=== PATIENT | female | born 1985 | race Caucasian/White ===

== ENCOUNTER 2018-02-06 22:07 | Inpatient (IN) ==
[2018-02-07] MEDS ORDERED: Acetaminophen 325 MG TABLET PO PRN (00:36)
[2018-02-07] MEDS ORDERED: Ondansetron 4 MG/2 ML VIAL IVP PRN (00:36)
[2018-02-07] MEDS ORDERED: Naloxone 0.4 MG/ML INJ IVP PRN (00:36)
[2018-02-07] MEDS: diazePAM 10 MG TABLET PO PRN ×2 (01:42→09:51)
[2018-02-07] MEDS ORDERED: Gadolinium Contrast Agent (WT Based) IV PRN (05:01)
--- NOTE | 2018-02-07 05:10 | Orthopedic Consult Note ---
Date of Encounter: 02/07/18 Time of Encounter: 05:04 Assessment and Plan (1) Necrotic hand wound Current Visit: Yes Status: Acute I did have a long discussion with the patient regarding the diagnosis. She does have bilateral hand subacute ulcerative lesions related to toxic injury from IV drug use. There likely is an underlying component of colonization/ infection. There is concern for possible osteomyelitis. I will order bilateral hand MRIs with contrast to further evaluate this. My recommendation is incision, drainage, irrigation, and debridement of devitalized tissue combined with antibiotics and wound care. Depending on the extent of involvement the patient may require skin grafting or flap coverage. She may also require long-term IV antibiotics. The risks discussed included but were not limited to stiffness, bleeding, infection, blood clots, damage to neurovascular structures, tendons, ligaments, and bone. Also discussed was the risk of continued symptoms and possible need for further procedures. I did discuss the anesthesia risks including stroke, heart attack, and . I did discuss the reasonable, foreseeable postoperative course with the patient. She did wish to proceed. Qualifiers: Qualified Code(s): S61.409A - Unspecified open wound of unspecified hand, initial encounter; I96 - Gangrene, not elsewhere classified History of Present Illness HPI: Ms. Chau is a 32 year old female who is an IV drug user actively. She was transferred from the [place] emergency department to [place] related to bilateral upper extremity cellulitis with significant ulceration to the dorsal hand and wrists. Due to possibly needing plastic surgery involvement for flap coverage an attempt was made to transfer the patient to [facility] however these were not successful. The patient indicates that these have been present for the last month and a half and the related to injecting heroin mixed with kerosene. She has not had any formal treatment for these ulcerations despite being to the emergency department to prior times. She complains of pain isolated to the bilateral dorsal hand wrist and forearm areas without any associated numbness or tingling. Symptoms are worse with movement and use and better with rest. No other modifying factors. She denies any other lesions throughout the lower extremities. Past Med Surg Social Fam HX - Past Medical History Medical history: hepatitis Additional medical history: HEP C Psychiatric history: no psych history - Past Surgical History Surgical History: no surgical history - Social History Smoking Status: Current every day smoker Smokeless Tobacco Status: No Alcohol use: occasionally Drug use: opiates, marijuana, methamphetamine, IV Drug Use, prescription drug abuse Medications and Allergies 3 Allergy/AdvReac Type Severity Reaction Status Date / Time No Known Allergies Allergy Verified 02/06/18 22:39 All Systems Reviewed: Constitutional and musculoskeletal systems were reviewed and are negative unless otherwise stated in history of present illness. Physical Exam - Constitutional Vitals: Temp Pulse Resp BP Pulse Ox 98.7 F 91 16 121/81 100 02/07/18 03:54 02/07/18 03:54 02/07/18 03:54 02/07/18 03:54 02/07/18 03:54 Constitutional -Vitals reviewed -The patient is well developed and well nourished. -Mood is pleasant. -The patient is well groomed. Psychiatric -The patient is fully alert and oriented x 3. Respiratory: -Respiratory effort normal Abdomen: -Soft abdomen -Non tender -Non distended: Left upper extremity: -No deformities. -No signs of trauma. -Extensive full-thickness ulceration of the dorsal hand, wrist, and distal forearm area with a mixture of eschar and underlying granulation -Minimal cellulitic change -I am able to milk a small amount of grossly purulent material from the proximal aspect of the lesion. -Expected tenderness throughout the area of ulceration. -No significant pain with passive motion of the shoulder, elbow, wrist, and fingers within the limits of the bed. -Able to make an "OK" sign, cross the index and long fingers, and extend the thumb. -Sensation grossly intact to light touch throughout the median, radial, and ulnar distributions. -Radial pulse is present; Fingers have good capillary refill. Right upper extremity: -No deformities. -No signs of trauma. -Extensive full-thickness ulceration of the dorsal hand, wrist, and distal forearm area with a mixture of eschar and underlying granulation -Minimal cellulitic change -Expected tenderness throughout the area of ulceration. -More proximally in the forearm region there is an area of induration near the common extensor origin area with tenderness and mild redness. -No significant pain with passive motion of the shoulder, elbow, wrist, and fingers within the limits of the bed. -Able to make an "OK" sign, cross the index and long fingers, and extend the thumb. -Sensation grossly intact to light touch throughout the median, radial, and ulnar distributions. -Radial pulse is present; Fingers have good capillary refill. Left lower extremity: -No deformities. -Sequelae from chronic injections and drug use. -The overlying skin is intact. No obvious signs of acute trauma. -No tenderness to palpation throughout. -No pain with passive motion of the hip, knee, ankle, and toes within the limits of the bed. -No pain with axial loading of the thigh. -Able to dorsiflex and plantarflex the ankle and toes. -Sensation is grossly intact to light touch throughout the sural, saphenous, superficial peroneal, and deep peroneal distributions. -Toes have good capillary refill. Right lower extremity: -No deformities. --Sequelae from chronic injections and drug use. -The overlying skin is intact. No obvious signs of acute trauma. -No tenderness to palpation throughout. -No pain with passive motion of the hip, knee, ankle, and toes within the limits of the bed. -No pain with axial loading of the thigh. -Able to dorsiflex and plantarflex the ankle and toes. -Sensation is grossly intact to light touch throughout the sural, saphenous, superficial peroneal, and deep peroneal distributions. -Toes have good capillary refill. Diagnostic Imaging: I did personally review and interpret bilateral hand x-rays which do not show any fractures. There are bony changes in the proximal ring and small finger metacarpals and carpus possibly related to osteomyelitis. Results - Labs Labs: All other labs normal. Consult Discharge Plan - Plan Referrals: NONE,PCP [Primary Care Provider] -
--- NOTE | 2018-02-07 06:22 | Internal Med History&Physical ---
Date of Encounter: 02/07/18 Time of Encounter: 00:30 Internal Medicine - H&P: HPI Chief complaint: Bilateral hand wound Admitted From: Home Plans for Post Hospital Care: Home History of present illness: Ms. Chau is a 32 year old female present to [place] emergency room for bilateral hand wound. Past medical history is significant for hep C, history of IV drug use. Patient has a history of IV drug use for 17 years. Since 2 months ago, she started to have bilateral hand wound, which is getting worse gradually. Patient denies a fever. Patient has bilateral hands pain. In the emergency room, x-ray shows possibly osteomyelitis. Patient was treated with vancomycin. Patient was admitted for further management. Past Med Surg Social Fam HX - Past Medical History Medical history: hepatitis Additional medical history: HEP C Psychiatric history: no psych history - Past Surgical History Surgical History: no surgical history - Social History Smoking Status: Current every day smoker Smokeless Tobacco Status: No Alcohol use: occasionally Drug use: opiates, marijuana, methamphetamine, IV Drug Use, prescription drug abuse - Family History Mother History Unknown: Yes Internal Medicine - H&P: Meds 3 Allergy/AdvReac Type Severity Reaction Status Date / Time No Known Allergies Allergy Verified 02/06/18 22:39 All Systems PM: A 10-system review of systems was performed and is negative for pertinent findings except as documented above in the HPI. - Constitutional Vitals: Temp Pulse Resp BP Pulse Ox 98.7 F 84 16 126/60 98 02/07/18 06:17 02/07/18 06:17 02/07/18 06:17 02/07/18 06:17 02/07/18 06:17 General appearance: Present: A&O X 3, no acute distress, answers questions appropriately - Head Head exam: Present: atraumatic, normocephalic - Eye Eye exam: Present: PERRL, conjuntiva pink, sclera anicteric Pupils: Present: PERRL - Neck Neck exam general surgery: Present: supple, trachea midline. Absent: lymphadenopathy - Respiratory Respiratory exam: Present: CTAB. Absent: accessory muscle use, rales, rhonchi, wheezes - Cardiovascular Cardiovascular exam: Present: RRR, +S1, +S2. Absent: diastolic murmur, gallop, rubs, systolic murmur - GI/Abdominal GI/Abdominal exam: Present: normal bowel sounds, soft, no peritoneal signs. Absent: distended, tenderness - Extremities Exam Extremities exam: Present: warm, radial pulses palpable and symmetrical. Absent : calf tenderness, cyanotic, pedal edema Additional comments: Bilateral hand wound on dorsal side hand and wrist. - Neurological Exam Neurological exam: Present: CN II-XII intact, oriented X3, no focal deficits. Absent: pronater drift, facial droop, speech deficit - Skin Skin exam: Present: dry, intact - Assessment and plan (1) IVDU (intravenous drug user) Current Visit: Yes Status: Acute Assessment and plan: Patient is currently taking heroin and amphetamines. Place patient on Valium by mouth when necessary for withdrawal. Consult social organization professor. Patient has hep C and ask to check HIV, order placed. (2) Tobacco abuse Current Visit: Yes Status: Acute Assessment and plan: Smoking cessation education. Nicotine patch (3) DVT prophylaxis Current Visit: Yes Status: Acute Assessment and plan: Patient is young and ambulating well. No anticoagulation placed (4) Necrotic hand wound Current Visit: Yes Status: Acute Assessment and plan: Bilateral hand wound. X-ray shows cellulitis and osteomyelitis. Place patient on Vanco and Rocephin. Check ESR and CRP. Orthopedic and ID consult. Qualifiers: Encounter type: initial encounter Laterality: unspecified laterality Qualified Code(s): S61.409A - Unspecified open wound of unspecified hand, initial encounter; I96 - Gangrene, not elsewhere classified (5) Osteomyelitis Current Visit: No Status: Acute Assessment and plan: Management as above Qualifiers: Osteomyelitis type: other acute Osteomyelitis location: hand Laterality: unspecified laterality Qualified Code(s): M86.149 - Other acute osteomyelitis , unspecified hand - Time Spent With Patient Total time spent is greater than 50% in coordination of care (as documented) at patient's floor/unit and/or counseling patient:
[2018-02-07 06:26] LABS: Basophils # 0.1 K/mcL (0.0-0.2); Basophils % 0.5 %; Eosinophils # 0.2 K/mcL (0.0-0.6); Eosinophils % 1.9 %; Hematocrit 51.7 % (35.3-44.9); Hemoglobin 17.4 g/dL (11.5-15.4); Immature Granulocytes % 0.5 % (0-4); Lymphocytes # 2.8 K/mcL (0.6-4.6); Lymphocytes % 26.1 %; Mean Corpuscular HGB Conc 33.7 g/dL (31.6-35.5); Mean Corpuscular Hemoglobin 29.2 pg (28.0-33.3); Mean Corpuscular Volume 86.9 fL (83.0-100.0); Mean Platelet Volume 9.6 fL (9.4-12.4); Monocytes # 0.6 K/mcL (0.0-1.3); Monocytes % 5.3 %; Platelet Count 402 K/mcL (140-400); Red Blood Count 5.95 M/mcL (3.82-4.97); Red Cell Distribution Width 13.5 % (11.5-14.5); Segmented Neutrophils % 65.7 %
[2018-02-07 06:53] LABS: Alanine Aminotransferase 7 Units/L (7-52); Albumin 4.7 g/dL (3.5-5.7); Albumin/Globulin Ratio 1.2 (1.1-2.2); Alkaline Phosphatase 69 Units/L (34-104); Aspartate Amino Transferase 11 Units/L (13-39); BUN/Creatinine Ratio 13 (6-26); Bilirubin,Total 0.5 mg/dL (0.3-1.0); Blood Urea Nitrogen 12 mg/dL (6-20); C-Reactive Protein 9 mg/L (Less than 10); Calcium 10.2 mg/dL (8.6-10.3); Carbon Dioxide 23 mEq/L (23-29); Chloride 111 mEq/L (98-107); Globulin 3.8 g/dL (2.4-3.5); Glucose 107 mg/dL (70-105); Magnesium 2.6 mg/dL (1.6-2.6); Osmolality,Calculated 294 (280-300); Potassium 3.4 mEq/L (3.5-5.1); Sodium 142 mEq/L (136-145); Total Protein 8.5 g/dL (6.4-8.9); eGFR For African Americans > 60 (> 60); eGFR For Non-African Americans > 60 (> 60)
[2018-02-07] MEDS ORDERED: cefTRIAXone 1,000 MG in Water for inj. (sterile) 20 ML 10 ML IVP SCH (09:00)
[2018-02-07] MEDS ORDERED: Potassium Chloride Elixir 20 MEQ/15 ML UDC PO ONE (10:18)
[2018-02-07] MEDS ORDERED: Ziprasidone injection 20 MG/ML VIAL IM ONE (11:26)
--- NOTE | 2018-02-07 11:30 | Infectious Disease Consult ---
Date of Encounter: 02/07/18 Time of Encounter: 11:27 Assessment and Plan (1) Necrotic hand wound Status: Acute Assessment and plan: Extensive bilateral hand wounds with eschar Secondary to chronic IV drug abuse XR was inconclusive for osteomyelitis and patient unable to tolerate MRI MRI scheduled for after 7 PM today Recommend if unable to tolerate MRI again, perform CT Ortho consulted, planning on I&D with debridement after imaging completed Qualifiers: Encounter type: initial encounter Laterality: unspecified laterality Qualified Code(s): S61.409A - Unspecified open wound of unspecified hand, initial encounter; I96 - Gangrene, not elsewhere classified (2) Osteomyelitis Status: Suspected Assessment and plan: This is suspected as imaging is pending Secondary to necrotic hand wounds from IVDU Vancomycin and Rocephin ordered but not given due to difficult IV access Will discontinue antibiotics for now until wound biopsy can be obtained Blood culture x 1 collected at ED, negative so far Will obtain two sets of blood cultures today ESR initially 30, will obtain CRP Patient does not have stigmata of endocarditis Considering Modified Puga's criteria, she currently has zero major and 1 minor criteria (IVDU) Qualifiers: Osteomyelitis type: other acute Osteomyelitis location: hand Laterality: unspecified laterality Qualified Code(s): M86.149 - Other acute osteomyelitis , unspecified hand (3) Hepatitis C Status: Chronic Assessment and plan: Patient claims to have known about this diagnosis for 20 years but has never been treated CMP revealed very minor elevation of AST but otherwise unremarkable Will obtain PT/INR to calculate MELD score She is interested in seeking treatment for this and will need to follow up with GI as outpatient Qualifiers: Viral hepatitis chronicity: chronic Hepatic coma status: without hepatic coma Qualified Code(s): B18.2 - Chronic viral hepatitis C (4) IVDU (intravenous drug user) Status: Acute Infectious Disease HPI - Data of Consult Patient: new to practice Consult date: 02/07/18 Requesting Physician: Nita Alvarado MD Primary Care Provider: PCP NONE - Consult Narrative Reason for consult: bilateral osteomyelitis History of present illness: Ms. Chau is a 32 year old female with past medical history of hepatitis C on any treatment, IV drug abuse who presents who was admitted February 07 for with bilateral hand wounds. We are consulted today for bilateral osteomyelitis. In brief, patient is has mental history as above presented to [place] ED last night with bilateral hand wounds that have been worsening over the past 2 months. Initial vital signs at the ED was temperature 98.6, heart rate 96, respiratory of 16 and her white count was 10.6. ESR will was mildly elevated at 30. She admits to last using heroin/kerosene mixure about 3 days ago and admits injecting both her hands, wrists, antecubital region. She states that she has seen a doctor in the ER for this and was given antibiotics, but she admits to not filling the prescription. She also admits to previously seen what appears to be bone in the wounds on her arms, but they have since scabbed over. She claims to put dressing on her wounds and changes in by her self at home. Orthopedic surgery was consulted and recommended obtaining MRI but she was unable to tolerated procedure due to agitation. During today's exam, patient is visibly frustrated after unable to perform MRI. She states that both her hands are and pain in her legs hurt her as well, but this is usual during her withdrawals. She also complains of nausea but has not had any vomiting. She states that she has been constipated. She denies any chest pain, shortness of breath, fevers. CC: Nita Alvarado MD Past Med Surg Social Fam HX - Past Medical History Medical history: hepatitis Additional medical history: HEP C Psychiatric history: no psych history - Past Surgical History Surgical History: no surgical history - Social History Smoking Status: Current every day smoker Smokeless Tobacco Status: No Alcohol use: occasionally Drug use: opiates, marijuana, methamphetamine, IV Drug Use, prescription drug abuse - Family History Mother History Unknown: Yes Infectious Disease-CN:Meds No Known Home Drugs 02/07/18 [History] 3 Allergy/AdvReac Type Severity Reaction Status Date / Time No Known Allergies Allergy Verified 02/06/18 22:39 Review of systems: 10 point review of systems done, negative other for what mentioned in history of present illness. - Constitutional Constitutional: Absent: fever(s), night sweats, weakness - Cardiovascular Cardiovascular: Present: dyspnea. Absent: chest pain, edema, irregular heart rhythm, orthopnea, rapid heart rate - Respiratory Respiratory: Present: dyspnea, chest congestion, excessive phlegm production. Absent: change in phlegm color, pain with cough - Gastrointestinal Gastrointestinal: Present: constipation, nausea. Absent: abdominal pain, melena , vomiting - Genitourinary Genitourinary: Absent: dysuria, urinary frequency, urinary incontinence - Musculoskeletal Musculoskeletal: Present: numbness, tingling. Absent: arthralgias - Integumentary Integumentary: Present: non-healing lesions, skin ulcer - Psychiatric Psychiatric: Present: irritability Exam - Constitutional Vitals: Temp Pulse Resp BP Pulse Ox 98.7 F 84 16 126/60 98 02/07/18 06:17 02/07/18 06:17 02/07/18 06:17 02/07/18 06:17 02/07/18 06:17 General appearance: cooperative (answers questions appropriately, but agitated) , no acute distress, no febrile - Head Head exam: Present: atraumatic, normocephalic - Eye Eye exam: Present: EOMI, PERRL, sclera anicteric. Absent: conjunctival injection - ENT ENT exam: Present: mucous membranes moist Additional comments: No oral lesions - Neck Neck exam: Present: full ROM. Absent: meningismus - Respiratory Respiratory exam: Present: CTAB. Absent: accessory muscle use, chest wall tenderness, respiratory distress, rhonchi, wheezes - Cardiovascular Cardiovascular exam: Present: RRR. Absent: irregular rhythm, systolic murmur, tachycardia - GI/Abdominal GI/Abdominal exam: Present: normal bowel sounds, soft. Absent: tenderness - Extremities Exam Extremities exam: Present: tenderness. Absent: pedal edema - Neurological Exam Neurological exam: Present: alert, oriented X3, no focal deficits - Psychiatric Psychiatric exam: Present: agitated, normal affect, normal mood Additional comments: Was very agitated earlier but now she is calm and appropriate - Skin Additional comments: Extensive ulcers with overlying eschar noted bilaterally in dorsal aspect of hand, wrist and forearm No stigmata of endocarditis noted, no osler nodes, Janeway lesions Infectious Disease CN: Results - Labs CBC & Chem 7: 02/07/18 06:03 02/07/18 06:03 Serology: Serology 02/07/18 Range/Units 06:03 HIV Ag/Ab Combo Qual Nonreactive (Nonreactive) Consult Discharge Plan - Plan Referrals: NONE,PCP [Primary Care Provider] - - Attending Attestation I examined this patient and my medical decision-making was reviewed with the Resident Physician. I agree with the documented findings, disposition and treatment plan as described except to the extent set forth below. This is an addendum to original report dictated by resident physician. Please refer to residents note for full details. Patient is a 32-year-old woman who is had hepatitis C for almost 1516 years and also is an IV drug user including heroin with kerosene and amphetamine. Patient was been having these lesions on her bilateral forearms and hands for about 6 weeks. She states that the getting progressively worse and they are severely painful and burning. She even states that at times she actually visualized bone but we can do that right now. Patient was admitted no SIRS criteria MRI was ordered but patient moved a lot and could not finish the MRI. MRI was canceled patient was sent to the floor and started on empiric antibiotics. We are asked to evaluate the patient for antibiotics recommendation. Assessment and plan: Necrotic hand wounds Osteomyelitis - questionable Hepatitis C History of IV drug use Tobacco abuse Recommendations: At this point if we can get an MRI me looks so with a CTU bilateral arms to see if there is any fluid collection or obvious osteomyelitis. Also we will get blood cultures. Check HIV status. Check PT/INR so mechanical Click her meld score. Hold antibiotics as the patient has no SIRS criteria until Intra-Op cultures are obtained. Please send Intra-Op cultures for routine, anaerobic, fungal and AFB. Patient also benefit from dermatology eval.
[2018-02-07] MEDS ORDERED: ALPRAZolam 0.5 MG TABLET PO PRN (12:08)
[2018-02-07] MEDS: Nicotine 21 MG PATCH.TD24 TD SCH (12:10)
--- NOTE | 2018-02-07 13:20 | Event Note ---
Date of Encounter: 02/07/18 Time of Encounter: 13:12 32 year old female with h/o- IVDU, polysubstance and Nicotine dependence, admitted with subacute B/L hand wounds related to drug use. Seen and examined at bedside; reports significant anxiety and withdrawal symptoms with nausea, vomiting, diarrhea; director of staff development reports patient gives different and variable history to multiple staff members, ?schizophrenia with paranoid delusions and hallucinations; Also multiple episodes of aggressive and violent behaviour towards staff members , Security had to be called once; MRI B/L hands could not be completed due to subjective reports of extreme anxiety and difficulty to lie still "also due to RLS in her legs". Noted to be alert and completely oriented to person, place and time; Chest- S1, S2 heard, mil;d tachycardia Lungs are clear to auscultation B/L B/L hands- dorsal hands and distal forearms with extensive necrotic lesions with black eschar, underlying tendons are visible; B/L hand cellulitis and necrotic wounds secondary to IV drug use- wounds seem subacute to chronic; patient states she presented precisely at this time to ER, as she is seeking help now; Orthopedics and ID on board; awaiting MRI hands for extensive debridement and possible skin grafting in the future; antibiotics held for now pending operative wound cultures; Pain control with PRN PO Oxycodone and IV Toradol. Substance abuse- patient is an active Heparin user; will give supportive treatment with IV benzodiazepines, PRN antiemetics and antidiarrheals; Psychiatry consult for reported paranoid delusions and hallucinations and self- diagnosed "schizophrenia".
[2018-02-07] MEDS: *HR* OxyCODONE/APAP 5/325 TABLET PO PRN ×2 (13:29→22:01)
[2018-02-07] MEDS: Haloperidol Lactate 5 MG/ML VIAL IVP PRN ×2 (13:32→17:58)
--- NOTE | 2018-02-07 13:43 | Orthopedics Progress Note ---
Date of Encounter: 02/07/18 Time of Encounter: 13:39 - Assessment and Plan (1) Necrotic hand wound Current Visit: Yes Status: Acute Qualifiers: Encounter type: initial encounter Laterality: unspecified laterality Qualified Code(s): S61.409A - Unspecified open wound of unspecified hand, initial encounter; I96 - Gangrene, not elsewhere classified Subjective Interval history: S: The patient is currently, he resting in bed however she has had multiple episodes of becoming significantly agitated. She refused her MRI saying that she was pain and that we are not making her comfortable. She said she wanted to leave AGAINST MEDICAL ADVICE with her our guide in place and security was called and she did calm down. Unfortunately she did eat crackers and drink soda on the way out from MRI. O: Afebrile on the vital signs are stable Unchanged ulcerative lesions to the bilateral hands and wrists CRP is normal A: Bilateral dorsal hand and wrist ulcerative lesions; possible osteomyelitis P: I did rediscuss the diagnosis in detail with the patient. I still recommend debridement and irrigation of the ulcers of devitalized tissue. If there is no exposed tendon then we will proceed with wet-to-dry dressing changes until the wounds are clean followed by wound VAC care to encourage granulation. If there are exposed tendons underneath the eschar then she would most likely require flap coverage. We will plan on MRI tomorrow before surgery. Nothing by mouth after good day. She is on the schedule for 3:15 tomorrow afternoon for her surgery. Objective Vital signs: Vital Signs Temp Pulse Resp BP Pulse Ox 02/07/18 11:43 98.8 F 118 16 118/81 92 02/07/18 06:17 98.7 F 84 16 126/60 98 02/07/18 03:54 98.7 F 91 16 121/81 100 02/06/18 23:39 98.6 F 96 16 131/82 97 Intake and Output 02/06/18 02/07/18 02/07/18 23:59 07:59 15:59 Intake Total 240 / 240 Balance 240 / 240 Intake: Oral 240 / 240 Other: Meal Breakfast Percent of Meal Consumed 50% # Voids 3 Weight 58.7 kg - Labs CBC & BMP: 02/07/18 06:03 02/07/18 06:03 Labs: Abnormal lab results RBC 5.95 M/mcL (3.82-4.97) H 02/07/18 06:03 Hgb 17.4 g/dL (11.5-15.4) H D 02/07/18 06:03 Hct 51.7 % (35.3-44.9) H 02/07/18 06:03 Plt Count 402 K/mcL (140-400) H 02/07/18 06:03 ESR 30 mm/hr (0-15) H 02/07/18 06:03 Potassium 3.4 mEq/L (3.5-5.1) L D 02/07/18 06:03 Chloride 111 mEq/L (98-107) H 02/07/18 06:03 Glucose 107 mg/dL (70-105) H 02/07/18 06:03 AST 11 Units/L (13-39) L 02/07/18 06:03 Globulin 3.8 g/dL (2.4-3.5) H 02/07/18 06:03 Consult Discharge Plan - Plan Referrals: NONE,PCP [Primary Care Provider] -
--- NOTE | 2018-02-07 14:58 | Consult Note ---
Date of Encounter: 02/07/18 Time of Encounter: 14:00 Assessment & Recommendation (1) Polysubstance (excluding opioids) dependence Current visit: No Status: Acute (2) Heroin use disorder, severe, dependence Current visit: No Status: Acute History of Present Illness Patient: new to practice Requesting Physician: Nita Alvarado MD Reason for consult: agitation/psycosis History of present illness: Ms. Chau is a 32 year old female was consulted today fpr agitation , psychosis . Patient refused to talk to me , when i introduced my self to her , she had her eyes closed and will not answer any of my questions , i asked her to nod wheather she wants to talk or not she noded no and was crawled up in her bed with eyes closed. chart reviewed as per event note She has h/o- IVDU, polysubstance and Nicotine dependence, admitted with subacute B/L hand wounds related to drug use. Seen and examined at bedside; reports significant anxiety and withdrawal symptoms with nausea, vomiting, diarrhea; staff trainer reports patient gives different and variable history to multiple staff members, ?schizophrenia with paranoid delusions and hallucinations; Also multiple episodes of aggressive and violent behaviour towards staff members , Security had to be called once; MRI B/L hands could not be completed due to subjective reports of extreme anxiety and difficulty to lie still "also due to RLS in her legs". at present patient is uncooperative and unable to get any history reviewed her medications and at present she has increased risk of withdrawl and need to monitor . MSE : unable to as patient uncooperative and selectively mute. A/P poly substance dependence and withdrawl stabilization along with her medical care. she will benefit from low dose seroquel 25 mg hs for her agitation and psychosis. will follow up when she is cooperative and able to give history. thank you for consult and involving me in her care. CC: Nita Alvarado MD Past Med Surg Social Fam HX - Past Medical History Medical history: hepatitis - Past Surgical History Surgical History: no surgical history - Social History Smoking Status: Current every day smoker Smokeless Tobacco Status: No Alcohol use: occasionally Drug use: opiates, marijuana, methamphetamine, IV Drug Use, prescription drug abuse - Family History Mother History Unknown: Yes Medications & Allergies No Known Home Drugs 02/07/18 [History] 3 Allergy/AdvReac Type Severity Reaction Status Date / Time No Known Allergies Allergy Verified 02/06/18 22:39 Psychiatry Exam - Constitutional Vitals: Temp Pulse Resp BP Pulse Ox 98.8 F 118 16 118/81 92 02/07/18 11:43 02/07/18 11:43 02/07/18 11:43 02/07/18 11:43 02/07/18 11:43 Results - Labs Labs: Laboratory Last Values WBC 10.6 K/mcL (4.3-11.1) 02/07/18 06:03 RBC 5.95 M/mcL (3.82-4.97) H 02/07/18 06:03 Hgb 17.4 g/dL (11.5-15.4) H D 02/07/18 06:03 Hct 51.7 % (35.3-44.9) H 02/07/18 06:03 MCV 86.9 fL (83.0-100.0) 02/07/18 06:03 MCH 29.2 pg (28.0-33.3) 02/07/18 06:03 MCHC 33.7 g/dL (31.6-35.5) 02/07/18 06:03 RDW 13.5 % (11.5-14.5) 02/07/18 06:03 Plt Count 402 K/mcL (140-400) H 02/07/18 06:03 MPV 9.6 fL (9.4-12.4) 02/07/18 06:03 Immature Gran % 0.5 % (0-4) 02/07/18 06:03 Seg Neutrophils % 65.7 % 02/07/18 06:03 Lymphocytes % 26.1 % 02/07/18 06:03 Monocytes % 5.3 % 02/07/18 06:03 Eosinophils % 1.9 % 02/07/18 06:03 Basophils % 0.5 % 02/07/18 06:03 Neutrophils # 7.0 K/mcL (1.6-8.9) 02/07/18 06:03 Lymphocytes # 2.8 K/mcL (0.6-4.6) 02/07/18 06:03 Monocytes # 0.6 K/mcL (0.0-1.3) 02/07/18 06:03 Eosinophils # 0.2 K/mcL (0.0-0.6) 02/07/18 06:03 Basophils # 0.1 K/mcL (0.0-0.2) 02/07/18 06:03 ESR 30 mm/hr (0-15) H 02/07/18 06:03 Sodium 142 mEq/L (136-145) 02/07/18 06:03 Potassium 3.4 mEq/L (3.5-5.1) L D 02/07/18 06:03 Chloride 111 mEq/L (98-107) H 02/07/18 06:03 Carbon Dioxide 23 mEq/L (23-29) 02/07/18 06:03 BUN 12 mg/dL (6-20) 02/07/18 06:03 Creatinine 0.96 mg/dL (0.60-1.20) 02/07/18 06:03 Est GFR ( Amer) > 60 (> 60) 02/07/18 06:03 Est GFR (Non-Af Amer) > 60 (> 60) 02/07/18 06:03 BUN/Creatinine Ratio 13 (6-26) 02/07/18 06:03 Glucose 107 mg/dL (70-105) H 02/07/18 06:03 Calculated Osmolality 294 (280-300) 02/07/18 06:03 Calcium 10.2 mg/dL (8.6-10.3) 02/07/18 06:03 Magnesium 2.6 mg/dL (1.6-2.6) 02/07/18 06:03 Total Bilirubin 0.5 mg/dL (0.3-1.0) 02/07/18 06:03 AST 11 Units/L (13-39) L 02/07/18 06:03 ALT 7 Units/L (7-52) 02/07/18 06:03 Alkaline Phosphatase 69 Units/L (34-104) 02/07/18 06:03 C-Reactive Protein 9 mg/L (Less than 10) 02/07/18 06:03 Serum Total Protein 8.5 g/dL (6.4-8.9) 02/07/18 06:03 Albumin 4.7 g/dL (3.5-5.7) 02/07/18 06:03 Globulin 3.8 g/dL (2.4-3.5) H 02/07/18 06:03 Albumin/Globulin Ratio 1.2 (1.1-2.2) 02/07/18 06:03 Beta HCG, Quant 1 mIU/mL (Less than 5) 02/07/18 06:03 HIV Ag/Ab Combo Qual Nonreactive (Nonreactive) 02/07/18 06:03 - Impressions Impressions Chest X-Ray 02/07/18 00:00 IMPRESSION: There is a single metallic foreign body corresponding with an 8 mm long needle fragment in the superficial left antecubital region. The findings were discussed with the MRI technicians and the ordered MRI of the bilateral hand/wrist will proceed. D/ /07/2018 13:28:07 Michoacano Haynes MD / sean Interpreting Provider: Michoacano Haynes MD Foot X-Ray 02/07/18 00:00 IMPRESSION: There is a single metallic foreign body corresponding with an 8 mm long needle fragment in the superficial left antecubital region. The findings were discussed with the MRI technicians and the ordered MRI of the bilateral hand/wrist will proceed. D/ /07/2018 13:28:07 Michoacano Haynes MD / sean Interpreting Provider: Michoacano Haynes MD Foot X-Ray 02/07/18 00:00 IMPRESSION: There is a single metallic foreign body corresponding with an 8 mm long needle fragment in the superficial left antecubital region. The findings were discussed with the MRI technicians and the ordered MRI of the bilateral hand/wrist will proceed. D/ /07/2018 13:28:07 Michoacano Haynes MD / sean Interpreting Provider: Michoacano Haynes MD Forearm X-Ray 02/07/18 05:53 IMPRESSION: There is a single metallic foreign body corresponding with an 8 mm long needle fragment in the superficial left antecubital region. The findings were discussed with the MRI technicians and the ordered MRI of the bilateral hand/wrist will proceed. D/ /07/2018 13:28:07 Michoacano Haynes MD / sean Interpreting Provider: Michoacano Haynes MD Forearm X-Ray 02/07/18 05:53 IMPRESSION: There is a single metallic foreign body corresponding with an 8 mm long needle fragment in the superficial left antecubital region. The findings were discussed with the MRI technicians and the ordered MRI of the bilateral hand/wrist will proceed. D/ /07/2018 13:28:07 Michoacano Haynes MD / sean Interpreting Provider: Michoacano Haynes MD Femur X-Ray 02/07/18 08:22 IMPRESSION: There is a single metallic foreign body corresponding with an 8 mm long needle fragment in the superficial left antecubital region. The findings were discussed with the MRI technicians and the ordered MRI of the bilateral hand/wrist will proceed. D/ /07/2018 13:28:07 Michoacano Haynes MD / sean Interpreting Provider: Michoacano Haynes MD Femur X-Ray 02/07/18 08:22 IMPRESSION: There is a single metallic foreign body corresponding with an 8 mm long needle fragment in the superficial left antecubital region. The findings were discussed with the MRI technicians and the ordered MRI of the bilateral hand/wrist will proceed. D/ /07/2018 13:28:07 Michoacano Haynes MD / sean Interpreting Provider: Michoacano Haynes MD Humerus X-Ray 02/07/18 08:22 IMPRESSION: There is a single metallic foreign body corresponding with an 8 mm long needle fragment in the superficial left antecubital region. The findings were discussed with the MRI technicians and the ordered MRI of the bilateral hand/wrist will proceed. D/ /07/2018 13:28:07 Michoacano Haynes MD / sean Interpreting Provider: Michoacano Haynes MD Humerus X-Ray 02/07/18 08:22 IMPRESSION: There is a single metallic foreign body corresponding with an 8 mm long needle fragment in the superficial left antecubital region. The findings were discussed with the MRI technicians and the ordered MRI of the bilateral hand/wrist will proceed. D/ /07/2018 13:28:07 Michoacano Haynes MD / sean Interpreting Provider: Michoacano Haynes MD Pelvis X-Ray 02/07/18 08:22 IMPRESSION: There is a single metallic foreign body corresponding with an 8 mm long needle fragment in the superficial left antecubital region. The findings were discussed with the MRI technicians and the ordered MRI of the bilateral hand/wrist will proceed. D/ /07/2018 13:28:07 Michoacano Haynes MD / sean Interpreting Provider: Michoacano Haynes MD Tibia/Fibula X-Ray 02/07/18 08:22 IMPRESSION: There is a single metallic foreign body corresponding with an 8 mm long needle fragment in the superficial left antecubital region. The findings were discussed with the MRI technicians and the ordered MRI of the bilateral hand/wrist will proceed. D/ /07/2018 13:28:07 Michoacano Haynes MD / sean Interpreting Provider: Michoacano Haynes MD Tibia/Fibula X-Ray 02/07/18 08:22 IMPRESSION: There is a single metallic foreign body corresponding with an 8 mm long needle fragment in the superficial left antecubital region. The findings were discussed with the MRI technicians and the ordered MRI of the bilateral hand/wrist will proceed. D/ /07/2018 13:28:07 Michoacano Haynes MD / sean Interpreting Provider: Michoacano Haynes MD KUB X-Ray 02/07/18 09:09 IMPRESSION: There is a single metallic foreign body corresponding with an 8 mm long needle fragment in the superficial left antecubital region. The findings were discussed with the MRI technicians and the ordered MRI of the bilateral hand/wrist will proceed. D/ : / 02/07/2018 13:28:07 Michoacano Haynes MD / sean Interpreting Provider: Michoacano Haynes MD Consult Discharge Plan - Plan Referrals: NONE,PCP [Primary Care Provider] -
[2018-02-07] MEDS: Ketorolac 30 MG/ML VIAL IVP PRN (18:18)
[2018-02-07] MEDS: *HR* LORazepam 2 MG/ML VIAL IVP PRN (20:37)
[2018-02-08] MEDS: *HR* LORazepam 2 MG/ML VIAL IVP PRN ×4 (02:38→22:02)
[2018-02-08] MEDS: *HR* OxyCODONE/APAP 5/325 TABLET PO PRN ×2 (04:15→08:57)
[2018-02-08 05:23] LABS: Basophils # 0.1 K/mcL (0.0-0.2); Basophils % 0.7 %; Eosinophils # 0.3 K/mcL (0.0-0.6); Eosinophils % 4.1 %; Hematocrit 41.7 % (35.3-44.9); Immature Granulocytes % 0.2 % (0-4); Lymphocytes # 2.7 K/mcL (0.6-4.6); Lymphocytes % 32.7 %; Mean Corpuscular HGB Conc 33.6 g/dL (31.6-35.5); Mean Corpuscular Volume 86.5 fL (83.0-100.0); Mean Platelet Volume 9.6 fL (9.4-12.4); Monocytes # 0.4 K/mcL (0.0-1.3); Monocytes % 4.9 %; Neutrophils # 4.6 K/mcL (1.6-8.9); Platelet Count 314 K/mcL (140-400); Red Blood Count 4.82 M/mcL (3.82-4.97); Red Cell Distribution Width 13.4 % (11.5-14.5); Segmented Neutrophils % 57.4 %
[2018-02-08 05:38] LABS: Prothrombin Time 10.9 Seconds (9.4-12.1)
[2018-02-08 05:46] LABS: BUN/Creatinine Ratio 32 (6-26); Blood Urea Nitrogen 23 mg/dL (6-20); Carbon Dioxide 17 mEq/L (23-29); Chloride 109 mEq/L (98-107); Glucose 102 mg/dL (70-105); Osmolality,Calculated 286 (280-300); Potassium 3.5 mEq/L (3.5-5.1); Sodium 136 mEq/L (136-145); eGFR For African Americans > 60 (> 60); eGFR For Non-African Americans > 60 (> 60)
[2018-02-08] MEDS: Haloperidol Lactate 5 MG/ML VIAL IVP PRN ×3 (07:18→21:07)
--- NOTE | 2018-02-08 07:48 | Orthopedics Progress Note ---
Date of Encounter: 02/08/18 Time of Encounter: 07:45 - Assessment and Plan (1) Necrotic hand wound Current Visit: Yes Status: Acute Qualifiers: Encounter type: initial encounter Laterality: unspecified laterality Qualified Code(s): S61.409A - Unspecified open wound of unspecified hand, initial encounter; I96 - Gangrene, not elsewhere classified Subjective Interval history: S: Patient is tearful this morning saying that she wants to drink and eat. Her surgery is scheduled for later today. Expected pain to the bilateral hands O: Afebrile on the vital signs are stable Dressings remain on the bilateral hands and wrists MRI negative for osteomyelitis A: Extensive ulceration to the hand and wrist dorsum bilaterally P: Plan for today is to debride the ulcerations of necrotic tissue and plan for wet to dry dressings We will likely get wound care involved depending on level of involvement I discussed that she needs to remain nothing by mouth in preparation for surgery today. Objective Vital signs: Vital Signs Temp Pulse Resp BP Pulse Ox 02/08/18 07:10 98.2 F 75 16 104/68 98 02/08/18 03:34 98.1 F 85 20 111/78 100 02/07/18 23:00 98.1 F 76 20 130/72 99 02/07/18 19:55 98.8 F 70 17 106/72 99 02/07/18 11:43 98.8 F 118 16 118/81 92 Intake and Output 02/07/18 02/07/18 02/08/18 15:59 23:59 07:59 Intake Total 240 / 240 400 / 400 0 / 0 Output Total 0 / 0 Balance 240 / 240 400 / 400 0 / 0 Intake: Oral 240 / 240 400 / 400 0 / 0 Output: Urine 0 / 0 Other: Meal Breakfast Dinner Percent of Meal Consumed 50% 100% Stool Size Small # Voids 3 1 # Bowel Movements 1 Weight 60 kg Patient Weight 02/08/18 23:59 Weight 60 kg - Labs CBC & BMP: 02/08/18 05:09 02/08/18 05:09 Labs: Abnormal lab results ESR 30 mm/hr (0-15) H 02/07/18 06:03 Chloride 109 mEq/L (98-107) H 02/08/18 05:09 Carbon Dioxide 17 mEq/L (23-29) L 02/08/18 05:09 BUN 23 mg/dL (6-20) H 02/08/18 05:09 BUN/Creatinine Ratio 32 (6-26) H 02/08/18 05:09 AST 11 Units/L (13-39) L 02/07/18 06:03 Globulin 3.8 g/dL (2.4-3.5) H 02/07/18 06:03 Consult Discharge Plan - Plan Referrals: NONE,PCP [Primary Care Provider] -
[2018-02-08] MEDS: Nicotine 21 MG PATCH.TD24 TD SCH (08:58)
--- NOTE | 2018-02-08 09:04 | Infectious Disease Progress No ---
Date of Encounter: 02/08/18 Time of Encounter: 09:00 - Assessment and Plan (1) Necrotic hand wound Current Visit: Yes Status: Acute Extensive bilateral hand wounds with eschar Secondary to chronic IV drug abuse MRI of bilateral hands did not show signs of osteomyelitis but did show abscess on right side Ortho consulted, planning on I&D with debridement this afternoon Patient not on any antibiotics and has not received any even though Vanc/ Rocephin ordered, she did not have IV access Will plan to initiate broad spectrum antibiotics with Vancomycin/Zosyn once intraoperative wound cultures collected Blood culture x 1 collected at ED, negative so far Repeat blood cultures x2 collected 02/07 pending ESR 30, CRP 9 Patient does not have stigmata of endocarditis Considering Modified Puga's criteria, she currently has zero major and 1 minor criteria (IVDU) Qualifiers: Encounter type: initial encounter Laterality: unspecified laterality Qualified Code(s): S61.409A - Unspecified open wound of unspecified hand, initial encounter; I96 - Gangrene, not elsewhere classified (2) Hepatitis C Current Visit: Yes Status: Chronic Patient claims to have known about this diagnosis for 20 years but has never been treated CMP revealed very minor elevation of AST but otherwise unremarkable INR = 1.0 and MELD score = 6 She is interested in seeking treatment for this and will need to follow up with GI as outpatient Qualifiers: Viral hepatitis chronicity: chronic Hepatic coma status: without hepatic coma Qualified Code(s): B18.2 - Chronic viral hepatitis C (3) IVDU (intravenous drug user) Current Visit: Yes Status: Acute - Subjective Interval history: Pt seen and examined. She states her hands are still painful and slightly worse than yesterday. Denies any chest pain, shortness of breath, fever, nausea, vomiting, or diarrhea. She is thirsty and wants to drink coffee and states "she won't have surgery" if she doesn't get it. Infect Dis PN-Objective Data - Labs CBC & Chem 7: 02/08/18 05:09 02/08/18 05:09 Labs: Laboratory Results - last 24 hr 02/08/18 02/08/18 02/08/18 05:09 05:09 05:09 WBC 8.1 RBC 4.82 Hgb 14.0 D Hct 41.7 MCV 86.5 MCH 29.0 MCHC 33.6 RDW 13.4 Plt Count 314 MPV 9.6 Immature Gran % 0.2 Seg Neutrophils % 57.4 Lymphocytes % 32.7 Monocytes % 4.9 Eosinophils % 4.1 Basophils % 0.7 Neutrophils # 4.6 Lymphocytes # 2.7 Monocytes # 0.4 Eosinophils # 0.3 Basophils # 0.1 PT 10.9 INR 1.0 Sodium 136 Potassium 3.5 Chloride 109 H Carbon Dioxide 17 L BUN 23 H Creatinine 0.73 Est GFR ( Amer) > 60 Est GFR (Non-Af Amer) > 60 BUN/Creatinine Ratio 32 H Glucose 102 Calculated Osmolality 286 Calcium 9.0 Cultures: Cultures 02/07/18 22:06 Blood Culture - Preliminary Peripheral Venipuncture Culture is incubating and being continuously monitored for growth. Final report to follow. Serology 02/07/18 Range/Units 06:03 HIV Ag/Ab Combo Qual Nonreactive (Nonreactive) - Impressions Impressions Chest X-Ray 02/07/18 00:00 IMPRESSION: There is a single metallic foreign body corresponding with an 8 mm long needle fragment in the superficial left antecubital region. The findings were discussed with the MRI technicians and the ordered MRI of the bilateral hand/wrist will proceed. D/ / 02/07/2018 13:28:07 Michoacano Haynes MD / sean Interpreting Provider: Michoacano Haynes MD Foot X-Ray 02/07/18 00:00 IMPRESSION: There is a single metallic foreign body corresponding with an 8 mm long needle fragment in the superficial left antecubital region. The findings were discussed with the MRI technicians and the ordered MRI of the bilateral hand/wrist will proceed. D/ / 02/07/2018 13:28:07 Michoacano Haynes MD / sean Interpreting Provider: Michoacano Haynes MD Foot X-Ray 02/07/18 00:00 IMPRESSION: There is a single metallic foreign body corresponding with an 8 mm long needle fragment in the superficial left antecubital region. The findings were discussed with the MRI technicians and the ordered MRI of the bilateral hand/wrist will proceed. D/ / 02/07/2018 13:28:07 Michoacano Haynes MD / sean Interpreting Provider: Michoacano Haynes MD Hand MRI 02/07/18 05:01 IMPRESSION: 1. Large ulceration/necrotic tissue extending along the dorsal hand and wrist. There is diffuse surrounding subcutaneous edema. No well-defined drainable fluid collection identified. 2. No acute osseous abnormality identified. No suspicious marrow edema to suggest osteomyelitis at this time peer D/ / Yosvany Cortés MD / Yosvany Cortés MD Interpreting Provider: Yosvany Cortés MD Hand MRI 02/07/18 05:01 IMPRESSION: 1. Extensive ulceration/tissue necrosis involving the dorsal soft tissues of the hand and wrist with corresponding surrounding subcutaneous edema. There are several foci of subcentimeter regions of fluid attenuation which potentially could reflect small abscesses. The largest measures 4.3 x 8.2 x 9.3 mm. 2. Mild tenosynovitis of the 4th extensor compartment. 3. No evidence for osteomyelitis. D/ / Yosvany Cortés MD / Yosvany Cortés MD Interpreting Provider: Yosvany Cortés MD Forearm X-Ray 02/07/18 05:53 IMPRESSION: There is a single metallic foreign body corresponding with an 8 mm long needle fragment in the superficial left antecubital region. The findings were discussed with the MRI technicians and the ordered MRI of the bilateral hand/wrist will proceed. D/ / 02/07/2018 13:28:07 Michoacano Haynes MD / sean Interpreting Provider: Michoacano Haynes MD Forearm X-Ray 02/07/18 05:53 IMPRESSION: There is a single metallic foreign body corresponding with an 8 mm long needle fragment in the superficial left antecubital region. The findings were discussed with the MRI technicians and the ordered MRI of the bilateral hand/wrist will proceed. D/ /07/2018 13:28:07 Michoacano Haynes MD / sean Interpreting Provider: Michoacano Haynes MD Femur X-Ray 02/07/18 08:22 IMPRESSION: There is a single metallic foreign body corresponding with an 8 mm long needle fragment in the superficial left antecubital region. The findings were discussed with the MRI technicians and the ordered MRI of the bilateral hand/wrist will proceed. D/ : / 02/07/2018 13:28:07 Michoacano Haynes MD / sean Interpreting Provider: Michoacano Haynes MD Femur X-Ray 02/07/18 08:22 IMPRESSION: There is a single metallic foreign body corresponding with an 8 mm long needle fragment in the superficial left antecubital region. The findings were discussed with the MRI technicians and the ordered MRI of the bilateral hand/wrist will proceed. D/ /07/2018 13:28:07 Michoacano Haynes MD / sean Interpreting Provider: iMchoacano Haynes MD Humerus X-Ray 02/07/18 08:22 IMPRESSION: There is a single metallic foreign body corresponding with an 8 mm long needle fragment in the superficial left antecubital region. The findings were discussed with the MRI technicians and the ordered MRI of the bilateral hand/wrist will proceed. D/ /07/2018 13:28:07 Michoacano Haynes MD / sean Interpreting Provider: Michoacano Haynes MD Humerus X-Ray 02/07/18 08:22 IMPRESSION: There is a single metallic foreign body corresponding with an 8 mm long needle fragment in the superficial left antecubital region. The findings were discussed with the MRI technicians and the ordered MRI of the bilateral hand/wrist will proceed. D/ / 02/07/2018 13:28:07 Michoacano Haynes MD / sean Interpreting Provider: Michoacano Haynes MD Pelvis X-Ray 02/07/18 08:22 IMPRESSION: There is a single metallic foreign body corresponding with an 8 mm long needle fragment in the superficial left antecubital region. The findings were discussed with the MRI technicians and the ordered MRI of the bilateral hand/wrist will proceed. D/ : / 02/07/2018 13:28:07 Michoacano Haynes MD / sean Interpreting Provider: Michoacano Haynes MD Tibia/Fibula X-Ray 02/07/18 08:22 IMPRESSION: There is a single metallic foreign body corresponding with an 8 mm long needle fragment in the superficial left antecubital region. The findings were discussed with the MRI technicians and the ordered MRI of the bilateral hand/wrist will proceed. D/ : / 02/07/2018 13:28:07 Michoacano Haynes MD / sean Interpreting Provider: Michoacano Haynes MD Tibia/Fibula X-Ray 02/07/18 08:22 IMPRESSION: There is a single metallic foreign body corresponding with an 8 mm long needle fragment in the superficial left antecubital region. The findings were discussed with the MRI technicians and the ordered MRI of the bilateral hand/wrist will proceed. D/ / 02/07/2018 13:28:07 Michoacano Haynes MD / sean Interpreting Provider: Michoacano Haynes MD X-Ray 02/07/18 09:09 IMPRESSION: There is a single metallic foreign body corresponding with an 8 mm long needle fragment in the superficial left antecubital region. The findings were discussed with the MRI technicians and the ordered MRI of the bilateral hand/wrist will proceed. D/ / 02/07/2018 13:28:07 Michoacano Haynes MD / sean Interpreting Provider: Michoacano Haynes MD Exam - Constitutional Vitals: Temp Pulse Resp BP Pulse Ox 98.2 F 65 14 115/69 98 02/08/18 08:18 02/08/18 08:18 02/08/18 08:18 02/08/18 08:18 02/08/18 08:18 General appearance: no acute distress, no febrile Exam: easily agitated - Head Head exam: Present: atraumatic, normocephalic - Respiratory Respiratory exam: Present: CTAB. Absent: decreased breath sounds, respiratory distress, rhonchi, wheezes - Cardiovascular Cardiovascular exam: Present: RRR. Absent: irregular rhythm, systolic murmur, tachycardia - GI/Abdominal GI/Abdominal exam: Present: normal bowel sounds, soft. Absent: tenderness - Extremities Exam Extremities exam: Present: tenderness. Absent: pedal edema Additional comments: bilateral hands/wrists are currently wrapped Consult Discharge Plan - Plan Referrals: NONE,PCP [Primary Care Provider] - - Attending Attestation I examined this patient and my medical decision-making was reviewed with the Resident Physician. I agree with the documented findings, disposition and treatment plan as described except to the extent set forth below.
--- NOTE | 2018-02-08 13:27 | Consult Note ---
Date of Encounter: 02/08/18 Time of Encounter: 13:00 Assessment & Recommendation (1) Polysubstance (excluding opioids) dependence Current visit: No Status: Acute Assessment & Recommendation: will need custodial inpatient rehab for her polysubstance use . (2) Heroin use disorder, severe, dependence Current visit: No Status: Acute Assessment & Recommendation: once medically stable need inpatient rehab. (3) Necrotic hand wound Current visit: Yes Status: Acute Qualifiers: Encounter type: initial encounter Laterality: unspecified laterality Qualified Code(s): S61.409A - Unspecified open wound of unspecified hand, initial encounter; I96 - Gangrene, not elsewhere classified (4) Hepatitis C Current visit: Yes Status: Chronic Qualifiers: Viral hepatitis chronicity: chronic Hepatic coma status: without hepatic coma Qualified Code(s): B18.2 - Chronic viral hepatitis C History of Present Illness Patient: new to practice Requesting Physician: Nita Alvarado MD Reason for consult: agitation /psychosis History of present illness: Ms. Chau is a 32 year old female consulted today , follow up as patient was uncooperative and did not wanted to speak to me yesterday. Today she was alert ,verbal and had to be redirected but gave some information , states has been using heroin iv for more than 15 years and has been homeless, she states she has not been to any rehab or treatment , she denies any psychiatric treatment but then said she had one in patient butwas not able to give more info. She denied suicide or homicide thoughts, denied any hallucination but stated her pain is at level 8 on scale 1-10 . she was in no distress at present and talking mostly with her eyes closed in her bed. she denied any depression at present , is irritable and hawkins , she wants to be in rehab and [facility] treatment for her heroin. Past psych none significant, no collateral using heroin for 15 years and denies any treatment. Family h/o states she has no support, has one child and he is in [place]. no other history provided. Medical as per chart has necrosis on her hands secondary to iv use of drugs. A/P opiod dependence with compliacations cluster b traits. Patient not suicidal /homicidal at present so no psych inpatient at present Once medically stable needs [facility] inpatient REHAB for her drug use which she is interested in also , no psych medication, if still remains agitated which mostly is drug seeking behaviour or wanting her way secondary to personality disorder. can give low dose seroquel 25 mg hs . Thank you for consult will sign off . CC: Nita Alvarado MD Past Med Surg Social Fam HX - Past Medical History Medical history: hepatitis - Past Psychiatric History Psychiatric history: Reports: no psych history Family psychiatric history: Unknown Family History of Suicide: Unknown - Past Surgical History Surgical History: no surgical history - Social History Smoking Status: Current every day smoker Smokeless Tobacco Status: No Alcohol use: occasionally Drug use: opiates, marijuana, methamphetamine, IV Drug Use, prescription drug abuse Current living situation: Homeless Recent Out of Country Travel Within the Last 8 Weeks: No Exposure or Possible Exposure to Illness During Travel: No - Family History Mother History Unknown: Yes Medications & Allergies No Known Home Drugs 02/07/18 [History] 3 Allergy/AdvReac Type Severity Reaction Status Date / Time No Known Allergies Allergy Verified 02/06/18 22:39 Psychiatry Exam - Constitutional Vitals: Temp Pulse Resp BP Pulse Ox 97.5 F L 71 17 104/71 98 02/08/18 11:08 02/08/18 11:08 02/08/18 11:08 02/08/18 11:08 02/08/18 11:08 General appearance: thin - Musculoskeletal Gait: other Station: other - Psychiatric Patient Orientation: Yes Person, Yes Place Level of alertness: Alert Behavior: anxious, uncooperative Eye Contact: No Eye Contact Mood Description: Anxious Affect description: constricted Speech Volume: Soft/Quiet Speech pattern: slowed Thought Process: Logical Thought Content: Yes Intact Attention Span Ability: Unable to Sustain Attention Patient Reliability: Questionable Historian Fund of knowledge: Yes average Intelligence Estimate: Average Judgment: Fair Insight: Minimal Results - Labs Labs: Laboratory Last Values WBC 8.1 K/mcL (4.3-11.1) 02/08/18 05:09 RBC 4.82 M/mcL (3.82-4.97) 02/08/18 05:09 Hgb 14.0 g/dL (11.5-15.4) D 02/08/18 05:09 Hct 41.7 % (35.3-44.9) 02/08/18 05:09 MCV 86.5 fL (83.0-100.0) 02/08/18 05:09 MCH 29.0 pg (28.0-33.3) 02/08/18 05:09 MCHC 33.6 g/dL (31.6-35.5) 02/08/18 05:09 RDW 13.4 % (11.5-14.5) 02/08/18 05:09 Plt Count 314 K/mcL (140-400) 02/08/18 05:09 MPV 9.6 fL (9.4-12.4) 02/08/18 05:09 Immature Gran % 0.2 % (0-4) 02/08/18 05:09 Seg Neutrophils % 57.4 % 02/08/18 05:09 Lymphocytes % 32.7 % 02/08/18 05:09 Monocytes % 4.9 % 02/08/18 05:09 Eosinophils % 4.1 % 02/08/18 05:09 Basophils % 0.7 % 02/08/18 05:09 Neutrophils # 4.6 K/mcL (1.6-8.9) 02/08/18 05:09 Lymphocytes # 2.7 K/mcL (0.6-4.6) 02/08/18 05:09 Monocytes # 0.4 K/mcL (0.0-1.3) 02/08/18 05:09 Eosinophils # 0.3 K/mcL (0.0-0.6) 02/08/18 05:09 Basophils # 0.1 K/mcL (0.0-0.2) 02/08/18 05:09 ESR 30 mm/hr (0-15) H 02/07/18 06:03 PT 10.9 Seconds (9.4-12.1) 02/08/18 05:09 INR 1.0 02/08/18 05:09 Sodium 136 mEq/L (136-145) 02/08/18 05:09 Potassium 3.5 mEq/L (3.5-5.1) 02/08/18 05:09 Chloride 109 mEq/L (98-107) H 02/08/18 05:09 Carbon Dioxide 17 mEq/L (23-29) L 02/08/18 05:09 BUN 23 mg/dL (6-20) H 02/08/18 05:09 Creatinine 0.73 mg/dL (0.60-1.20) 02/08/18 05:09 Est GFR ( Amer) > 60 (> 60) 02/08/18 05:09 Est GFR (Non-Af Amer) > 60 (> 60) 02/08/18 05:09 BUN/Creatinine Ratio 32 (6-26) H 02/08/18 05:09 Glucose 102 mg/dL (70-105) 02/08/18 05:09 Calculated Osmolality 286 (280-300) 02/08/18 05:09 Calcium 9.0 mg/dL (8.6-10.3) 02/08/18 05:09 Magnesium 2.6 mg/dL (1.6-2.6) 02/07/18 06:03 Total Bilirubin 0.5 mg/dL (0.3-1.0) 02/07/18 06:03 AST 11 Units/L (13-39) L 02/07/18 06:03 ALT 7 Units/L (7-52) 02/07/18 06:03 Alkaline Phosphatase 69 Units/L (34-104) 02/07/18 06:03 C-Reactive Protein 9 mg/L (Less than 10) 02/07/18 06:03 Serum Total Protein 8.5 g/dL (6.4-8.9) 02/07/18 06:03 Albumin 4.7 g/dL (3.5-5.7) 02/07/18 06:03 Globulin 3.8 g/dL (2.4-3.5) H 02/07/18 06:03 Albumin/Globulin Ratio 1.2 (1.1-2.2) 02/07/18 06:03 Beta HCG, Quant 1 mIU/mL (Less than 5) 02/07/18 06:03 HIV Ag/Ab Combo Qual Nonreactive (Nonreactive) 02/07/18 06:03 - Impressions Impressions Chest X-Ray 02/07/18 00:00 IMPRESSION: There is a single metallic foreign body corresponding with an 8 mm long needle fragment in the superficial left antecubital region. The findings were discussed with the MRI technicians and the ordered MRI of the bilateral hand/wrist will proceed. D/ / 02/07/2018 13:28:07 Michoacano Haynes MD / sean Interpreting Provider: Michoacano Haynes MD Foot X-Ray 02/07/18 00:00 IMPRESSION: There is a single metallic foreign body corresponding with an 8 mm long needle fragment in the superficial left antecubital region. The findings were discussed with the MRI technicians and the ordered MRI of the bilateral hand/wrist will proceed. D/ : / 02/07/2018 13:28:07 Michoacano Haynes MD / sean Interpreting Provider: Michoacano Haynes MD Foot X-Ray 02/07/18 00:00 IMPRESSION: There is a single metallic foreign body corresponding with an 8 mm long needle fragment in the superficial left antecubital region. The findings were discussed with the MRI technicians and the ordered MRI of the bilateral hand/wrist will proceed. D/ : / 02/07/2018 13:28:07 Michoacano Haynes MD / sean Interpreting Provider: Michoacano Haynes MD Hand MRI 02/07/18 05:01 IMPRESSION: 1. Large ulceration/necrotic tissue extending along the dorsal hand and wrist. There is diffuse surrounding subcutaneous edema. No well-defined drainable fluid collection identified. 2. No acute osseous abnormality identified. No suspicious marrow edema to suggest osteomyelitis at this time peer D/ / Yosvany Cortés MD / Yosvany Cortés MD Interpreting Provider: Yosvany Cortés MD Hand MRI 02/07/18 05:01 IMPRESSION: 1. Extensive ulceration/tissue necrosis involving the dorsal soft tissues of the hand and wrist with corresponding surrounding subcutaneous edema. There are several foci of subcentimeter regions of fluid attenuation which potentially could reflect small abscesses. The largest measures 4.3 x 8.2 x 9.3 mm. 2. Mild tenosynovitis of the 4th extensor compartment. 3. No evidence for osteomyelitis. D/ / Yosvany Cortés MD / Yosvany Cortés MD Interpreting Provider: Yosvany Cortés MD Forearm X-Ray 02/07/18 05:53 IMPRESSION: There is a single metallic foreign body corresponding with an 8 mm long needle fragment in the superficial left antecubital region. The findings were discussed with the MRI technicians and the ordered MRI of the bilateral hand/wrist will proceed. D/ / 02/07/2018 13:28:07 Michoacano Haynes MD / sean Interpreting Provider: Michoacano Haynes MD Forearm X-Ray 02/07/18 05:53 IMPRESSION: There is a single metallic foreign body corresponding with an 8 mm long needle fragment in the superficial left antecubital region. The findings were discussed with the MRI technicians and the ordered MRI of the bilateral hand/wrist will proceed. D/ / 02/07/2018 13:28:07 Michoacano Haynes MD / sean Interpreting Provider: Michoacano Haynes MD Femur X-Ray 02/07/18 08:22 IMPRESSION: There is a single metallic foreign body corresponding with an 8 mm long needle fragment in the superficial left antecubital region. The findings were discussed with the MRI technicians and the ordered MRI of the bilateral hand/wrist will proceed. D/ / 02/07/2018 13:28:07 Michoacano Haynes MD / sean Interpreting Provider: Michoacano Haynes MD Femur X-Ray 02/07/18 08:22 IMPRESSION: There is a single metallic foreign body corresponding with an 8 mm long needle fragment in the superficial left antecubital region. The findings were discussed with the MRI technicians and the ordered MRI of the bilateral hand/wrist will proceed. D/ / 02/07/2018 13:28:07 Michoacano Haynes MD / sean Interpreting Provider: Michoacano Haynes MD Humerus X-Ray 02/07/18 08:22 IMPRESSION: There is a single metallic foreign body corresponding with an 8 mm long needle fragment in the superficial left antecubital region. The findings were discussed with the MRI technicians and the ordered MRI of the bilateral hand/wrist will proceed. D/ / 02/07/2018 13:28:07 Michoacano Haynes MD / sean Interpreting Provider: Michoacano Haynes MD Humerus X-Ray 02/07/18 08:22 IMPRESSION: There is a single metallic foreign body corresponding with an 8 mm long needle fragment in the superficial left antecubital region. The findings were discussed with the MRI technicians and the ordered MRI of the bilateral hand/wrist will proceed. D/ : / 02/07/2018 13:28:07 Michoacano Haynes MD / sean Interpreting Provider: Michoacano Haynes MD Pelvis X-Ray 02/07/18 08:22 IMPRESSION: There is a single metallic foreign body corresponding with an 8 mm long needle fragment in the superficial left antecubital region. The findings were discussed with the MRI technicians and the ordered MRI of the bilateral hand/wrist will proceed. D/ / 02/07/2018 13:28:07 Michoacano Haynes MD / sean Interpreting Provider: Michoacano Haynes MD Tibia/Fibula X-Ray 02/07/18 08:22 IMPRESSION: There is a single metallic foreign body corresponding with an 8 mm long needle fragment in the superficial left antecubital region. The findings were discussed with the MRI technicians and the ordered MRI of the bilateral hand/wrist will proceed. D/ : / 02/07/2018 13:28:07 Michoacano Haynes MD / sean Interpreting Provider: Michoacano Haynes MD Tibia/Fibula X-Ray 02/07/18 08:22 IMPRESSION: There is a single metallic foreign body corresponding with an 8 mm long needle fragment in the superficial left antecubital region. The findings were discussed with the MRI technicians and the ordered MRI of the bilateral hand/wrist will proceed. D/ : / 02/07/2018 13:28:07 Michoacano Haynes MD / sean Interpreting Provider: Michoacano Haynes MD X-Ray 02/07/18 09:09 IMPRESSION: There is a single metallic foreign body corresponding with an 8 mm long needle fragment in the superficial left antecubital region. The findings were discussed with the MRI technicians and the ordered MRI of the bilateral hand/wrist will proceed. D/ : / 02/07/2018 13:28:07 Michoacano Haynes MD / sean Interpreting Provider: Michoacano Haynes MD Consult Discharge Plan - Plan Referrals: NONE,PCP [Primary Care Provider] -
[2018-02-08] MEDS ORDERED: Aminoglycoside Consult 1 EACH MC ONE (15:29)
--- NOTE | 2018-02-08 16:38 | Anesthesia Evaluation PreOp ---
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: Other (polysubstance abuse) Other Medical History: Hepatic (Hep C), Other (17 years of IVDU; severe heroin addiction; marijuana, methamphetamine, opiates, and prescription drug abuse) Anesthesia History: No Prior Anesthetic Complications (no fhx of problems with anesthesia) Alcohol Use: occasionally Drug use: opiates, marijuana, methamphetamine, IV Drug Use, prescription drug abuse Medications and Allergies No Known Home Drugs 02/07/18 [History] 3 Allergy/AdvReac Type Severity Reaction Status Date / Time No Known Allergies Allergy Verified 02/06/18 22:39 - Meds/Allergy Pre-op Review Medications Reviewed: Yes Allergies Reviewed: Yes Beta Blockers on Current Med List: No Anesthesia Results - Labs 02/08/18 05:09 02/08/18 05:09 Anesthesia Exam Last Vital Signs Temp 97.5 F L 02/08/18 11:08 Pulse 71 02/08/18 11:08 Resp 17 02/08/18 11:08 BP 104/71 02/08/18 11:08 Pulse Ox 98 02/08/18 11:08 Weight: 60 kg - HEENT Pupil (Motor): Pupils equal, EOMI Mallampati: III Teeth: Missing Denture Type: Upper: Complete Oral Opening: Greater than 3 - 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
--- NOTE | 2018-02-08 16:59 | Internal Med Progress Note ---
Date of Encounter: 02/08/18 Time of Encounter: 13:15 - Assessment and plan (1) Osteomyelitis Current Visit: Yes Status: Ruled-out Assessment and plan: MRI of left hand shows extensive ulceration and tissue necrosis with no focal abscess or underlying osteomyelitis. MRI of right hand shows similar findings with multiple microabscesses, mild tenosynovitis of the fourth extensor compartment, no osteomyelitis. Qualifiers: Osteomyelitis type: other acute Osteomyelitis location: hand Laterality: unspecified laterality Qualified Code(s): M86.149 - Other acute osteomyelitis , unspecified hand (2) Necrotic hand wound Current Visit: Yes Status: Acute Assessment and plan: Bilateral hand necrotic ulcers secondary to IV drug use. MRI results as mentioned above. Orthopedic surgery on board, plan for operative irrigation and debridement with wound VAC placement today. Pain control with when necessary IV Toradol and oral oxycodone. 08/15 blood cultures negative. Antibiotics deferred for now; Qualifiers: Encounter type: initial encounter Laterality: unspecified laterality Qualified Code(s): S61.409A - Unspecified open wound of unspecified hand, initial encounter; I96 - Gangrene, not elsewhere classified (3) IVDU (intravenous drug user) Current Visit: Yes Status: Acute Assessment and plan: Patient is an active IV drug user. At risk for withdrawal. Continue supportive care with when necessary oxycodone, IV Ativan, IV Haldol. Patient is very dramatic and uncooperative, aggressive at times. Psychiatric consult noted-patient refuses to engage in conversation. Will start low-dose Seroquel per psychiatry recommendations. environmental services attendant consult; patient is homeless and she has no family or insurance per her; (4) Tobacco abuse Current Visit: Yes Status: Chronic Assessment and plan: continue Nicotine TD patch; (5) DVT prophylaxis Current Visit: Yes Status: Acute - Time Spent With Patient Total time spent is greater than 50% in coordination of care (as documented) at patient's floor/unit and/or counseling patient: - Subjective Interval history: Patient is noted to be resting in bed with eyes closed. Refuses to answer questions. Underwent MRI of both hands last night, awaiting orthopedic surgery this afternoon. - Constitutional Vitals: Temp Pulse Resp BP Pulse Ox 97.5 F L 71 17 104/71 98 02/08/18 11:08 02/08/18 11:08 02/08/18 11:08 02/08/18 11:08 02/08/18 11:08 General appearance: Absent: cooperative, answers questions appropriately - Cardiovascular Cardiovascular exam: Present: RRR, +S1, +S2. Absent: diastolic murmur, gallop, rubs, systolic murmur Internal Medicine: Result - Labs CBC & Chem 7: 02/08/18 05:09 02/08/18 05:09 Labs: Short CBC 02/08/18 Range/Units 05:09 WBC 8.1 (4.3-11.1) K/mcL Hgb 14.0 D (11.5-15.4) g/dL Hct 41.7 (35.3-44.9) % Plt Count 314 (140-400) K/mcL Neutrophils # 4.6 (1.6-8.9) K/mcL BMP 02/08/18 05:09 Sodium 136 Potassium 3.5 Chloride 109 H Carbon Dioxide 17 L BUN 23 H Creatinine 0.73 Glucose 102 Calcium 9.0 - ABG Interpretation ABG results: PT/INR, D-dimer PT 10.9 Seconds (9.4-12.1) 02/08/18 05:09 - Impressions Impressions Hand MRI 02/07/18 05:01 IMPRESSION: 1. Large ulceration/necrotic tissue extending along the dorsal hand and wrist. There is diffuse surrounding subcutaneous edema. No well-defined drainable fluid collection identified. 2. No acute osseous abnormality identified. No suspicious marrow edema to suggest osteomyelitis at this time peer D/ / Yosvany Cortés MD / Yosvany Cortés MD Interpreting Provider: Yosvany Cortés MD Hand MRI 02/07/18 05:01 IMPRESSION: 1. Extensive ulceration/tissue necrosis involving the dorsal soft tissues of the hand and wrist with corresponding surrounding subcutaneous edema. There are several foci of subcentimeter regions of fluid attenuation which potentially could reflect small abscesses. The largest measures 4.3 x 8.2 x 9.3 mm. 2. Mild tenosynovitis of the 4th extensor compartment. 3. No evidence for osteomyelitis. D/ / Yosvany Cortés MD / Yosvany Cortés MD Interpreting Provider: Yosvany Cortés MD Consult Discharge Plan - Plan Referrals: NONE,PCP [Primary Care Provider] -
[2018-02-08] MEDS ORDERED: Acetaminophen IV 1,000 MG/100 ML INFUS..BTL ONE (17:03)
[2018-02-08] MEDS ORDERED: Ketamine *HR* 500 MG/10 ML MDV ONE (17:04)
[2018-02-08] MEDS ORDERED: Bupivacaine/EPI 1:200k 0.5%PF 30 ML VIAL ONE (17:05)
[2018-02-08] MEDS ORDERED: *HR* FentaNYL (PF) 100 MCG/2 ML VIAL ONE (17:06)
[2018-02-08] MEDS ORDERED: *HR* Propofol 200 MG/20 ML VIAL IVP ONE (17:06)
[2018-02-08] MEDS ORDERED: Lidocaine -MPF 2% 2 ML VIAL ONE (17:07)
[2018-02-08] MEDS ORDERED: Ondansetron 4 MG/2 ML VIAL ONE (17:29)
[2018-02-08] MEDS: Piperacillin/Tazobactam 3.375 GM in 0.9 % Sodium Chloride Mini Bag 100 ML IVPB SCH (17:38)
[2018-02-08] MEDS ORDERED: Ketorolac 30 MG/ML VIAL ONE (18:38)
[2018-02-08] MEDS ORDERED: *HR* OxyCODONE Immed Rel 5 MG TABLET PO PRN (18:51)
[2018-02-08] MEDS ORDERED: *HR* HYDROmorphone 2 MG/ML SYRINGE IVP PRN (18:52)
[2018-02-08] MEDS: *HR* Promethazine 25 MG/ML VIAL IVP PRN ×2 (19:10→19:15)
[2018-02-08] MEDS: *HR* HYDROmorphone 2 MG/ML SYRINGE IVP PRN ×4 (19:14→19:36)
[2018-02-08] MEDS ORDERED: 0.9 % Sodium Chloride 500 ML ONE (19:20)
--- NOTE | 2018-02-08 20:42 | Orthopedic Operative Note ---
Date of procedure: 02/08/18 Procedure: OPERATIVE REPORT DATE OF PROCEDURE: 02/08/2018 SURGEON: Chet Acosta MD EARLY CHILDHOOD SERVICES COORDINATOR(S): There were no assistants PREOPERATIVE DIAGNOSIS: Bilateral dorsal hand and wrist ulcerations from toxic drug use injury POSTOPERATIVE DIAGNOSIS: Same PROCEDURE: Excisional debridement and irrigation of the bilateral dorsal hand and wrists including skin and subcutaneous tissue. ANESTHESIA: Gen. anesthesia PREOPERATIVE ANTIBIOTICS: Vancomycin and Zosyn from the floor ESTIMATED BLOOD LOSS: 5 milliliters PREOPERATIVE NOTE AND INDICATIONS: This patient is a 32-year-old female with bilateral dorsal hand ulcerations from toxic drug use injury. She has full-thickness necrotic tissue. My recommendation was for debridement and irrigation of the devitalized tissue followed by wound care. The surgical plan was discussed with the patient. The risks, .benefits, alternatives, and potential complications of this procedure were discussed with the patient including injury to veins, arteries, nerves, tendons, ligaments, and bone. Also discussed were the risks of infection, bleeding, pain, blood clots, the possible need for a blood transfusion, the possible need for further procedures, heart attack, stroke, and . Additional risks include the need for possible further debridement or flap coverage. All of this was explained in simple terms, and the patient verbalized understanding and wished to proceed. Consent was given to proceed with surgery. PROCEDURE: The patient was seen in the preoperative holding area where the identify and the consent were confirmed. The bilateral upper extremities were marked. Final questions were answered. The patient was brought back to the operating room and placed supine on the operating room table. A huddle was performed with the patient and all vital surgical team members confirming patient identity , the correct procedure, and the correct operative site. Gen. anesthesia was administered. The left upper extremity was prepped and draped in the usual sterile fashion. A surgical time out was performed immediately preceding the incision with all personnel in the operating room to confirm patient identity, the correct operative site and extremity, correct radiographic studies, availability of appropriate surgical equipment, and agreement on the planned procedure. The left limb was exsanguinated and the tourniquet was inflated. The limb was evaluated and there is noted to be full-thickness necrotic changes along multiple areas in the hand dorsum and wrist dorsum. These were sharply excised with a scalpel and pickup followed by debridement of residual tissue with a curet and rongeur. There was no purulent material or concern for infection. Along the hand dorsum the involvement went down to the peritenon of the extensor tendons which was kept in place. After copious irrigation the wound was covered with a sterile wet-to-dry dressing. The tourniquet was deflated and a sterile field was taken down and the right upper extremity was prepped and draped in the tourniquet was elevated. A similar procedure was performed where the full-thickness necrotic tissue was sharply excised with a scalpel followed by further debridement with curet and rongeur. There were no exposed tendons on the right or exposed peritenon after debridement. It wet-to-dry dressing and the tourniquet was deflated. The instrument, sponge, and needle counts were correct after wound closure. POST OPERATIVE PLAN: Weight Bearing: Weightbearing as tolerated bilateral upper extremities DVT Prophylaxis: Ambulation Activity: Avoid aggressive activities with the bilateral upper extremities Wound Care: Daily local wound care with wet-to-dry dressing changes. Was there an chef assistant present: No Estimated blood loss (cc): 1
--- NOTE | 2018-02-08 22:22 | Anesthesia Evaluation Post Op ---
Date of Encounter: 02/08/18 Time of Encounter: 19:44 Notes: Patient's vital signs have been reviewed. Patient is stable postoperatively and has adequately recovered from anesthesia. Patient is determined to have stable airway patency and respiratory function including respiratory rate and oxygen saturation. Patient has a stable heart rate, blood pressure and adequate hydration. Patients mental status is acceptable. Patients temperature is appropriate. Pain and nausea are adequately controlled. - Discharge PostOp Status: Transfer Patient to floor
[2018-02-09] MEDS: Piperacillin/Tazobactam 3.375 GM in 0.9 % Sodium Chloride Mini Bag 100 ML IVPB SCH ×2 (01:42→07:42)
[2018-02-09] MEDS: *HR* OxyCODONE/APAP 5/325 TABLET PO PRN ×3 (01:43→11:38)
[2018-02-09] MEDS: Nicotine 21 MG PATCH.TD24 TD SCH (07:57)
[2018-02-09 08:12] VITALS: BP 114/75
--- NOTE | 2018-02-09 08:23 | Orthopedics Progress Note ---
Date of Encounter: 02/09/18 Time of Encounter: 07:30 - Assessment and Plan (1) Necrotic hand wound Current Visit: Yes Status: Acute Qualifiers: Encounter type: initial encounter Laterality: unspecified laterality Qualified Code(s): S61.409A - Unspecified open wound of unspecified hand, initial encounter; I96 - Gangrene, not elsewhere classified Subjective Interval history: S: Expected pain to the bilateral hand and wrist dorsums. O: Afebrile on the vital signs are stable Dressings are taken down and the wounds on both sides look good without concern for infection. She can grossly flex and extend the digits. Neurovascularly intact. A: Extensive ulceration to the hand and wrist dorsum bilaterally, post I&D P: The patient will require home care for daily wet-to-dry dressing changes. He is orthopedically stable for discharge once this has been set up. I do not believe that she currently has active infection and we can stop the antibiotics from my standpoint. She may require skin grafting in the future depending on how well quickly she feels with wet-to-dry dressing changes. Follow-up with me in the office in 1 week for clinical reevaluation or sooner if needed. Objective Vital signs: Vital Signs Temp Pulse Resp BP Pulse Ox 02/09/18 07:45 97.0 F L 79 16 114/75 99 02/08/18 22:20 97.8 F 66 16 121/79 100 02/08/18 21:15 98.4 F 82 16 128/84 96 02/08/18 20:45 98.2 F 16 16 126/88 96 02/08/18 20:15 98 F 60 14 120/77 99 02/08/18 19:45 98.6 F 57 10 125/70 100 02/08/18 19:35 66 12 130/61 100 02/08/18 19:25 73 18 134/70 100 02/08/18 19:15 98.2 F 73 18 136/85 100 02/08/18 19:05 81 18 128/76 100 02/08/18 18:55 80 18 142/84 100 02/08/18 18:45 98.7 F 87 16 131/82 98 02/08/18 11:08 97.5 F L 71 17 104/71 98 Intake and Output 02/08/18 02/09/18 02/09/18 23:59 07:59 15:59 Intake Total 350 / 350 Output Total Balance 345 / 345 Intake: IV Fluids 350 / 350 Zosyn 3.375 GM In 0.9 % Sodium 100 / 100 Chloride (Mini-Bag +) 100 ML @ 25 mls/hr IVPB Q8HR [facility] Rx#: [id number] Vancocin 1,000 MG In 0.9 % 250 / 250 Sodium Chloride 250 ML @ 167 mls/hr IVPB Q12H [facility] Rx#: [id number] Output: Estimated Blood Loss Other: # Voids 1 - Labs CBC & BMP: 02/08/18 05:09 02/08/18 05:09 Labs: Abnormal lab results ESR 30 mm/hr (0-15) H 02/07/18 06:03 Chloride 109 mEq/L (98-107) H 02/08/18 05:09 Carbon Dioxide 17 mEq/L (23-29) L 02/08/18 05:09 BUN 23 mg/dL (6-20) H 02/08/18 05:09 BUN/Creatinine Ratio 32 (6-26) H 02/08/18 05:09 AST 11 Units/L (13-39) L 02/07/18 06:03 Globulin 3.8 g/dL (2.4-3.5) H 02/07/18 06:03 Consult Discharge Plan - Plan Referrals: NONE,PCP [Primary Care Provider] -
[2018-02-09 09:40] LABS: BUN/Creatinine Ratio 20 (6-26); Blood Urea Nitrogen 14 mg/dL (6-20); Calcium 8.8 mg/dL (8.6-10.3); Carbon Dioxide 21 mEq/L (23-29); Chloride 115 mEq/L (98-107); Glucose 116 mg/dL (70-105); Magnesium 2.2 mg/dL (1.6-2.6); Osmolality,Calculated 295 (280-300); Potassium 4.8 mEq/L (3.5-5.1); Sodium 142 mEq/L (136-145); eGFR For African Americans > 60 (> 60); eGFR For Non-African Americans > 60 (> 60)
--- NOTE | 2018-02-09 09:58 | Infectious Disease Progress No ---
Date of Encounter: 02/09/18 Time of Encounter: 09:50 - Assessment and Plan (1) Necrotic hand wound Status: Acute Extensive bilateral hand wounds with eschar Secondary to chronic IV drug abuse MRI of bilateral hands did not show signs of osteomyelitis but did show abscess on right side Ortho consulted, planning on I&D with debridement this afternoon Patient not on any antibiotics and has not received any even though Vanc/ Rocephin ordered, she did not have IV access Will discontinue Vancomycin and Zosyn as patient did not have infectious appearance of wound during surgery per ortho Recommend starting PO Keflex 500 mg QID for 7 days for right wrist abscess that grew weiss-sensitive staph aureus Blood culture x 1 collected at ED, negative so far Repeat blood cultures x2 collected 02/07 pending ESR 30, CRP 9 Patient does not have stigmata of endocarditis Considering Modified Puga's criteria, she currently has zero major and 1 minor criteria (IVDU) Will sign off, please call with any questions Qualifiers: Encounter type: initial encounter Laterality: unspecified laterality Qualified Code(s): S61.409A - Unspecified open wound of unspecified hand, initial encounter; I96 - Gangrene, not elsewhere classified (2) Hepatitis C Status: Chronic Patient claims to have known about this diagnosis for 20 years but has never been treated CMP revealed very minor elevation of AST but otherwise unremarkable INR = 1.0 and MELD score = 6 She is interested in seeking treatment for this and will need to follow up with GI as outpatient Qualifiers: Viral hepatitis chronicity: chronic Hepatic coma status: without hepatic coma Qualified Code(s): B18.2 - Chronic viral hepatitis C (3) IVDU (intravenous drug user) Status: Chronic - Subjective Interval history: Pt seen and examined. She states her hands are severely painful after surgery yesterday and she has some pain radiating up her arm. Denies any chest pain, shortness of breath, fever, chills, nausea, vomiting or diarrhea. Infect Dis PN-Objective Data - Labs CBC & Chem 7: 02/08/18 05:09 02/09/18 09:06 Labs: Laboratory Results - last 24 hr 02/09/18 09:06 Sodium 142 Potassium 4.8 Chloride 115 H Carbon Dioxide 21 L BUN 14 Creatinine 0.70 Est GFR ( Amer) > 60 Est GFR (Non-Af Amer) > 60 BUN/Creatinine Ratio 20 Glucose 116 H Calculated Osmolality 295 Calcium 8.8 Magnesium 2.2 Cultures: Cultures 02/07/18 22:06 Blood Culture - Preliminary Peripheral Venipuncture Culture is incubating and being continuously monitored for growth. Final report to follow. Serology 02/07/18 Range/Units 06:03 HIV Ag/Ab Combo Qual Nonreactive (Nonreactive) Exam - Constitutional Vitals: Temp Pulse Resp BP Pulse Ox 97.0 F L 79 16 114/75 99 02/09/18 07:45 02/09/18 07:45 02/09/18 07:45 02/09/18 07:45 02/09/18 07:45 General appearance: cooperative, no acute distress - Head Head exam: Present: atraumatic, normocephalic - Respiratory Respiratory exam: Present: CTAB. Absent: decreased breath sounds, respiratory distress, wheezes, tachypnea - Cardiovascular Cardiovascular exam: Present: RRR. Absent: irregular rhythm, systolic murmur, tachycardia - GI/Abdominal GI/Abdominal exam: Present: normal bowel sounds, soft. Absent: tenderness - Extremities Exam Extremities exam: Present: tenderness Additional comments: both hands/wrists wrapped s/p I&D Consult Discharge Plan - Plan Instructions: Acute Wound Care (DC) Additional Instructions: F/up with Psychiatry when possible for mood/personality disorder Referrals: Chet Acosta MD [Partnered Physician] - 02/16/18 11:10 am Prescriptions: cephALEXin [Keflex] 500 mg PO QID #28 capsule Gauze Bandage [Curity] 1 each TP DAILY #3 bandage Gauze Bandage [Kerlix] 1 each TP DAILY #3 bandage OxyCODONE/APAP 5/325 [Percocet 5/325 MG] 1 each PO Q6H PRN 5 Days #10 tablet PRN Reason: Severe Pain Quetiapine Fumarate [Seroquel] 25 mg PO HS #30 tablet - Attending Attestation I examined this patient and my medical decision-making was reviewed with the Resident Physician. I agree with the documented findings, disposition and treatment plan as described except to the extent set forth below.
[2018-02-09] MEDS: ALPRAZolam 0.5 MG TABLET PO PRN ×2 (10:00→15:16)
[2018-02-09] MEDS: Ketorolac 30 MG/ML VIAL IVP PRN (11:58)
[2018-02-09] MEDS ORDERED: cephALEXin 500 MG CAPSULE PO SCH (13:00)
--- NOTE | 2018-02-09 13:41 | Discharge Summary ---
- NOTES TO OUTPATIENT PROVIDER Notes to Outpatient Provider: B/L necrotic hand wounds, s/p debridement; needs local wound care and Ortho f/up; Orders not resulted at time of discharge: Pending orders 02/07/18 22:06 Culture,Blood [BC] Routine Date of Encounter: 02/09/18 Time of Encounter: 13:39 - Discharge Diagnosis (1) Osteomyelitis Priority: Primary Status: Ruled-out Qualifiers: Osteomyelitis type: other acute Osteomyelitis location: hand Laterality: unspecified laterality Qualified Code(s): M86.149 - Other acute osteomyelitis , unspecified hand (2) Necrotic hand wound Priority: Primary Status: Acute Qualifiers: Encounter type: initial encounter Laterality: unspecified laterality Qualified Code(s): S61.409A - Unspecified open wound of unspecified hand, initial encounter; I96 - Gangrene, not elsewhere classified (3) IVDU (intravenous drug user) Priority: Primary Status: Chronic (4) Tobacco abuse Priority: Secondary Status: Chronic Hospital course: Ms. Chau is a 32 year old female with history of polysubstance abuse including active IV heroin use, was admitted with necrotic wounds on both hands , which seemed subacute. She could not be started on IV antibiotics in the emergency room due to inability to obtain IV access. Orthopedic surgery was consulted, recommended MRI bilateral hands. MRI of left hand shows extensive ulceration and tissue necrosis with no focal abscess or underlying osteomyelitis. MRI of right hand shows similar findings with multiple microabscesses, mild tenosynovitis of the fourth extensor compartment, no osteomyelitis. She underwent Excisional debridement and irrigation of the bilateral dorsal hand and wrists including skin and subcutaneous tissue, on 02/08/2018. Intraoperative cultures were not obtained but no evidence of infection per surgery. Infectious diseases was consulted. Blood cultures remain negative. Initial wound culture grew MSSA. Patient is currently medically stable for discharge on a 7 day course of oral antibiotics. She is noted to have significant mood/personality disorder with intermittent psychosis, aggressive behavior and agitation and drug-seeking behavior. Psychiatric was consulted, recommend low-dose Seroquel at bedtime, patient needs outpatient psychiatry and orthopedics follow-up. environmental services director have been on board. Patient was extremely agitated today, demanding IV narcotic analgesics. I spoke to the patient along with nursing powerhouse mechanic supervisor, Rebeka, that she may have IV NSAIDs, Tylenol and PO Oxycodone, but IV narcotics are relatively contraindicated due to active drug use. Patient calmed down subsequently and was agreeable to discharge. Discharge discussed with: patient, nurse, social work - Time Spent with Patient Total time spent providing and/or coordinating discharge services: Greater than 30 minutes (45 min) - Discharge Medications Prescriptions: cephALEXin [Keflex] 500 mg PO QID #28 capsule Gauze Bandage [Curity] 1 each TP DAILY #3 bandage Gauze Bandage [Kerlix] 1 each TP DAILY #3 bandage OxyCODONE/APAP 5/325 [Percocet 5/325 MG] 1 each PO Q6H PRN 5 Days #10 tablet PRN Reason: Severe Pain Quetiapine Fumarate [Seroquel] 25 mg PO HS #30 tablet Home Medications: Acetaminophen [Tylenol] 650 mg PO Q6HR PRN tablet 02/09/18 [Rx] Gauze Bandage [Curity] 1 each TP DAILY #3 bandage 02/09/18 [Rx] Gauze Bandage [Kerlix] 1 each TP DAILY #3 bandage 02/09/18 [Rx] OxyCODONE/APAP 5/325 [Percocet 5/325 MG] 1 each PO Q6H PRN 5 Days #10 tablet [Rx] Quetiapine Fumarate [Seroquel] 25 mg PO HS #30 tablet 02/09/18 [Rx] cephALEXin [Keflex] 500 mg PO QID #28 capsule 02/09/18 [Rx] Allergies/Adverse Reactions: 3 Allergy/AdvReac Type Severity Reaction Status Date / Time No Known Allergies Allergy Verified 02/06/18 22:39 Date of admission: 02/07/18 00:36 Primary care physician: PCP NONE Consults: 02/06/18 23:42 Consult to Polymerization Kettle Operator [CONS] Routine Reason for SW Consult: pt homeless 02/07/18 00:46 Consult to Infectious Diseases [CONS] Routine Consulting Provider: Infectious Disease [facility] Reason for Consult: osteomyelitis of b/l hand Call Completed: No Consult to Orthopedic Surgery [CONS] Routine Consulting Provider: Orthopedics [facility] Reason for Consult: Dr Moreira was called by [facility] ED Call Completed: Yes 02/07/18 00:55 Consult to PICC team [Consult to Invasive Line Access Team] [CONS] Routine Reason for Consult: IV atbs Line Type: PICC 02/07/18 07:06 Consult to PICC team [Consult to Invasive Line Access Team] [CONS] Stat Reason for Consult: IV atbs Line Type: PICC 02/07/18 11:24 Consult to Psychiatry [CONS] Routine Consulting Provider: Psychiatry Ros[facility] Reason consult: Agitation Psychosis Other reason and/or additional details: Active IV drug abuse, hallucinations , delusions Call Completed: Yes Discharging clinician: Nita Alvarado Anticipated date of discharge: 02/09/18 - Constitutional Vitals: Temp Pulse Resp BP Pulse Ox 97.0 F L 79 16 114/75 99 02/09/18 07:45 02/09/18 07:45 02/09/18 07:45 02/09/18 07:45 02/09/18 07:45 General appearance: Present: A&O X 3, answers questions appropriately. Absent: cooperative - Cardiovascular Cardiovascular exam: Present: RRR, +S1, +S2. Absent: diastolic murmur, gallop, rubs, systolic murmur - Patient Status Disposition: Home, Self-Care Condition: Fair Functional capacity at discharge: independent ambulation Overall status at discharge: patient is progressing back to baseline - Discharge Instructions Instructions: Acute Wound Care (DC) Follow Up With: Chet Acosta MD [Partnered Physician] - 02/16/18 11:10 am Additional Instructions: F/up with Psychiatry when possible for mood/personality disorder - Diet and Activity Activity: resume usual activities as tolerated Diet: advance to your usual diet, regular diet
== END 2018-02-09 15:30 | disposition home or self-care (01) | DRG 364 ==
LOC: 3NENU → SUATTDRO 02-07 00:36
PROVIDERS: ADMIT Internal Medicine Nephrology; ATTEND Internal Medicine

== ENCOUNTER 2018-02-12 12:18 | Observation (INO) ==
[2018-02-12] MEDS ORDERED: 0.9 % Sodium Chloride 1,000 ML IVC ONE ×2 (12:47→14:55)
[2018-02-12] MEDS ORDERED: *HR* OxyCODONE/APAP 5/325 TABLET PO ONE (12:47)
--- NOTE | 2018-02-12 14:20 | Emergency Department Note ---
Disposition Clinical Impression: Tachycardia, Sepsis Disposition: Admitted As Inpatient Condition: Good Referrals: NONE,PCP [Primary Care Provider] - Forms: ED Satisfaction Letter General Adult HPI - General Chief complaint: ED Skin/Abscess/Foreign Body Stated complaint: left surg site infection Source: patient Limitations: no limitations Nursing Notes Reviewed: Yes Vital Signs Reviewed: Yes - History of Present Illness HPI Narrative: Patient presents today for concern for infection. She has had recent surgical intervention of both bilateral wrists forearms and hands secondary to necrotic skin wounds. Wounds caused by contaminated dose of IV drugs. Patient underwent surgery with Dr. Moreira. Patient was seen by ID. BRAND. Continuing to take antibiotics. Patient presents with concern for infection secondary to increased pain of the left wrist and hand. Patient continues to have full range of motion. Mild decrease in strength secondary to pain. Patient states that her discharge has become more purulent in nature. Pain Scale: 7 - Related Data Previous Rx's Medication Instructions Recorded Acetaminophen [Tylenol] 650 mg PO Q6HR PRN tablet 02/09/18 cephALEXin [Keflex] 500 mg PO QID #28 capsule 02/09/18 Allergies Allergy/AdvReac Type Severity Reaction Status Date / Time No Known Allergies Allergy Verified 02/12/18 14:59 Review of Systems: CONSTITUTIONAL: No weight loss, fever, chills, weakness or fatigue. HEENT: Eyes: No visual changes. Ears, Nose, Throat: No hearing loss, difficulty talking or unable to swallow. SKIN: No rash or itching. CARDIOVASCULAR: No chest pain, chest pressure or chest discomfort. No palpitations or edema. RESPIRATORY: No shortness of breath, cough or sputum. GASTROINTESTINAL: No anorexia, nausea, vomiting or diarrhea. No abdominal pain or blood. GENITOURINARY: No burning on urination or hematuria. NEUROLOGICAL: No headache, dizziness, syncope, paralysis, ataxia, numbness or tingling in the extremities. No change in bowel or bladder control. MUSCULOSKELETAL: Pain to the left breast forearm and hand. Past Medical History - Past Medical History Medical history: Reports: hepatitis Surgical history: Reports: no surgical history Psychiatric history: Reports: no psych history MALTED MILK MASHER history: Reports: no MALTED MILK MASHER history - Social History Smoking Status: Current every day smoker Smokeless Tobacco Status: No Alcohol use: Reports: occasionally Drug use: Reports: opiates, marijuana, methamphetamine, IV Drug Use, prescription drug abuse Physical Exam General appearance: NAD, conversant Eyes: anicteric sclerae, moist conjunctivae; no lid-lag; PERRL HENT: Atraumatic; oropharynx clear with moist mucous membranes Neck: Normal appearance; Trachea midline Chest: Symmetrical chest rise; No respiratory distress Extremities: Bilateral upper extremities with extensive debridement of the superficial structures including the distal forearm wrist and dorsum of the hand. Serosanguineous discharge on wound as. Concern for mild purulent drainage on the left wrist. No specific site of infection or necrosis. Skin: Normal temperature, turgor and texture; no rash, ulcers or subcutaneous nodules Psych: Appropriate mood and affect Neuro: Awake and alert - General Limitations: no limitations General appearance: alert, in no apparent distress Course - Reevaluation(s) Reevaluation #1: Patient requires ultrasound guidance to establish IV. Patient given fluids with mild improvement in overall heart rate. Patient's presentation with concerning factors of tachycardia and increasing pain in the left wrist with described increased drainage even though it is not purulent at this time. Due to the patient's extensive wounds as well as persistent tachycardia she will be given antibiotics and admitted. Reevaluation #2: Patient reevaluated. Patient with persistent tachycardia. Not overtly septic. Antibiotics and fluids given. CRP elevated compared to previous. - Consultations Consultation #1: Discussed with Dr. Moreira. Patient had extensive necrosis but no significant infection on operation. Will be able to evaluate and consult admitted to the hospitalist. Consultation #2: Discussed with hospitalist. Patient admitted for persistent tachycardia in the setting of extensive wounds. Patient does take recreational drugs. Patient states most recently used 3 AM. Vital Signs Temperature 99 F 02/12/18 12:20 Pulse Rate 151 02/12/18 12:20 Respiratory Rate 20 02/12/18 12:20 Blood Pressure 160/90 02/12/18 12:20 O2 Sat by Pulse Oximetry 98 02/12/18 12:20 Temperature 99 F 02/12/18 12:28 Pulse Rate 132 02/12/18 14:18 Respiratory Rate 18 02/12/18 14:18 Blood Pressure 162/98 02/12/18 14:18 O2 Sat by Pulse Oximetry 98 02/12/18 14:18 Oxygen Delivery Oxygen Delivery Room Air Medical Decision Making - Medical Records Medical records reviewed: Yes I reviewed the patient's medical records. - Lab Data Lab results reviewed: Yes I reviewed the patient's lab results. Result diagrams: 02/12/18 14:26 02/12/18 14:26 Lab Results 02/12/18 02/12/18 02/12/18 Range/Units 14:26 14:26 14:26 WBC 9.3 (4.3-11.1) K/mcL RBC 4.65 (3.82-4.97) M/mcL Hgb 13.8 (11.5-15.4) g/dL Hct 40.0 (35.3-44.9) % MCV 86.0 (83.0-100.0) fL MCH 29.7 (28.0-33.3) pg MCHC 34.5 (31.6-35.5) g/dL RDW 13.3 (11.5-14.5) % Plt Count 307 (140-400) K/mcL MPV 9.9 (9.4-12.4) fL Immature Gran % 0.3 (0-4) % Seg Neutrophils % 76.5 % Lymphocytes % 17.6 % Monocytes % 4.5 % Eosinophils % 0.9 % Basophils % 0.2 % Neutrophils # 7.1 (1.6-8.9) K/mcL Lymphocytes # 1.6 (0.6-4.6) K/mcL Monocytes # 0.4 (0.0-1.3) K/mcL Eosinophils # 0.1 (0.0-0.6) K/mcL Basophils # 0.0 (0.0-0.2) K/mcL ESR 34 H (0-15) mm/hr Sodium 139 (136-145) mEq/L Potassium 3.1 L (3.5-5.1) mEq/L Chloride 103 (98-107) mEq/L Carbon Dioxide 29 (23-29) mEq/L BUN 6 (6-20) mg/dL Creatinine 0.62 (0.60-1.20) mg/dL Est GFR ( Amer) > 60 (> 60) Est GFR (Non-Af Amer) > 60 (> 60) BUN/Creatinine Ratio 10 (6-26) Glucose 116 H (70-105) mg/dL Calculated Osmolality 287 (280-300) Lactic Acid (0.5-2.2) mmol/L Calcium 9.8 (8.6-10.3) mg/dL C-Reactive Protein (Less than 10) mg/L 02/12/18 02/12/18 Range/Units 14:26 14:26 WBC (4.3-11.1) K/mcL RBC (3.82-4.97) M/mcL Hgb (11.5-15.4) g/dL Hct (35.3-44.9) % MCV (83.0-100.0) fL MCH (28.0-33.3) pg MCHC (31.6-35.5) g/dL RDW (11.5-14.5) % Plt Count (140-400) K/mcL MPV (9.4-12.4) fL Immature Gran % (0-4) % Seg Neutrophils % % Lymphocytes % % Monocytes % % Eosinophils % % Basophils % % Neutrophils # (1.6-8.9) K/mcL Lymphocytes # (0.6-4.6) K/mcL Monocytes # (0.0-1.3) K/mcL Eosinophils # (0.0-0.6) K/mcL Basophils # (0.0-0.2) K/mcL ESR (0-15) mm/hr Sodium (136-145) mEq/L Potassium (3.5-5.1) mEq/L Chloride (98-107) mEq/L Carbon Dioxide (23-29) mEq/L BUN (6-20) mg/dL Creatinine (0.60-1.20) mg/dL Est GFR ( Amer) (> 60) Est GFR (Non-Af Amer) (> 60) BUN/Creatinine Ratio (6-26) Glucose (70-105) mg/dL Calculated Osmolality (280-300) Lactic Acid 0.8 (0.5-2.2) mmol/L Calcium (8.6-10.3) mg/dL C-Reactive Protein 20 H (Less than 10) mg/L - Radiology Data Radiology results reviewed: Yes I reviewed the patient's radiology results. - EKG Data EKG #1 EKG attestation: Yes I reviewed and interpreted this EKG. EKG results narrative: EKG shows sinus tachycardia with ventricular rate of 115. UT interval 147. QRS 93. QTC 368. Patient hassignificant ST elevation or depression.
[2018-02-12 14:39] LABS: Basophils % 0.2 %; Eosinophils # 0.1 K/mcL (0.0-0.6); Eosinophils % 0.9 %; Hemoglobin 13.8 g/dL (11.5-15.4); Immature Granulocytes % 0.3 % (0-4); Lymphocytes # 1.6 K/mcL (0.6-4.6); Lymphocytes % 17.6 %; Mean Corpuscular HGB Conc 34.5 g/dL (31.6-35.5); Mean Corpuscular Hemoglobin 29.7 pg (28.0-33.3); Mean Platelet Volume 9.9 fL (9.4-12.4); Monocytes # 0.4 K/mcL (0.0-1.3); Monocytes % 4.5 %; Neutrophils # 7.1 K/mcL (1.6-8.9); Platelet Count 307 K/mcL (140-400); Red Blood Count 4.65 M/mcL (3.82-4.97); Red Cell Distribution Width 13.3 % (11.5-14.5); Segmented Neutrophils % 76.5 %
[2018-02-12 15:01] LABS: BUN/Creatinine Ratio 10 (6-26); Blood Urea Nitrogen 6 mg/dL (6-20); Calcium 9.8 mg/dL (8.6-10.3); Carbon Dioxide 29 mEq/L (23-29); Chloride 103 mEq/L (98-107); Glucose 116 mg/dL (70-105); Osmolality,Calculated 287 (280-300); Potassium 3.1 mEq/L (3.5-5.1); Sodium 139 mEq/L (136-145); eGFR For African Americans > 60 (> 60); eGFR For Non-African Americans > 60 (> 60)
[2018-02-12] MEDS ORDERED: Piperacillin/Tazobactam 3.375 GM in 0.9 % Sodium Chloride Mini Bag 100 ML IVPB ONE (15:01)
[2018-02-12] MEDS ORDERED: Naloxone 0.4 MG/ML INJ IVP PRN (15:55)
[2018-02-12] MEDS ORDERED: Acetaminophen 325 MG TABLET PO PRN (15:57)
--- NOTE | 2018-02-12 16:13 | Internal Med History&Physical ---
<JoannDodie Jes - Last Filed: 02/12/18 17:01> Date of Encounter: 02/12/18 Time of Encounter: 16:00 Internal Medicine - H&P: HPI Chief complaint: Bilat wrist pain Admitted From: Home Plans for Post Hospital Care: Home History of present illness: Ms. Chau is a 32 year old female with history of tobacco abuse, Hep C, IVDU, poly-substance abuse, osteomylitis, and necrosis. The patient had a recent admission here and was discharged on 02/01/2018, she went home and has been using again. She reportedly told the nurse in the ED that she was using and did heroin 2 days ago and methamphetamines at 0300 this morning. She has apparently been using for 18 years and wants to quit. Advocates spoke to the patient in the ED and will follow up regarding patient being homeless and wanting to seek help. Social service consult was also placed due to the patient wanting to go to rehab. Urine drug screen ordered. ESR was 34, CRP was 20, lactic is 0.8, blood cultures and wound cultures were also obtained. The patient was started on vancomycin, and zosyn. Will continue on floor. The patient is tachycardic, in the 120-150's. EKG showed ST, heart rate in the 110's. ST-T wave abnormality. The HR is currently 112. Past Med Surg Social Fam HX - Past Medical History Medical history: hepatitis Additional medical history: HEP C Psychiatric history: no psych history - Past Surgical History Surgical History: no surgical history - Social History Smoking Status: Current every day smoker Smokeless Tobacco Status: No Alcohol use: occasionally Drug use: opiates, marijuana, methamphetamine, IV Drug Use, prescription drug abuse Internal Medicine - H&P: Meds Acetaminophen [Tylenol] 650 mg PO Q6HR PRN tablet 02/09/18 [Rx] cephALEXin [Keflex] 500 mg PO QID #28 capsule 02/09/18 [Rx] 3 Allergy/AdvReac Type Severity Reaction Status Date / Time No Known Allergies Allergy Verified 02/12/18 14:59 All Systems PM: A 10-system review of systems was performed and is negative for pertinent findings except as documented above in the HPI. - Constitutional Constitutional: no chills, no fever(s), no night sweats - EENT Eyes: no change in vision, no discharge, no pain, no photophobia Ears: no ear discharge, no ear pain, no tinnitus Nose, mouth and throat: no dysphagia, no nasal discharge, no neck pain, no sore throat - Cardiovascular Cardiovascular ROS IM: no chest pain, no diaphoresis, no dyspnea, no lightheadedness, no palpitations, no syncope - Respiratory Respiratory: no cough, no dyspnea, no wheezing, no excessive phlegm production - Gastrointestinal Gastrointestinal: no abdominal pain, no diarrhea, no hematemesis, no hematochezia, no melena, no nausea, no vomiting - Genitourinary Genitourinary: no change in urinary stream, no dysuria, no flank pain, no hematuria - Musculoskeletal Musculoskeletal ROS IM: no numbness, no tingling - Integumentary Integumentary IM: erythema (to right arm. Both lower ext with quaze dressings), no rash, no unusual bruising - Neurological Neurological ROS: no confusion, no convulsions, no focal weakness, no numbness, no tingling, no tremor(s) - Hematologic/Lymphatic Hematologic/Lymphatic: no easy bruising - Constitutional Vitals: Temp Pulse Resp BP Pulse Ox 99 F 132 18 162/98 98 02/12/18 12:28 02/12/18 14:18 02/12/18 14:18 02/12/18 14:18 02/12/18 14:18 General appearance: Present: A&O X 3, answers questions appropriately - Head Head exam: Present: atraumatic, normocephalic - Eye Eye exam: Present: PERRL, conjuntiva pink, sclera anicteric Pupils: Present: PERRL - Neck Neck exam general surgery: Present: supple, trachea midline. Absent: lymphadenopathy - Respiratory Respiratory exam: Present: CTAB. Absent: accessory muscle use, rales, rhonchi, wheezes - Cardiovascular Cardiovascular exam: Present: RRR, +S1, +S2. Absent: diastolic murmur, gallop, rubs, systolic murmur - GI/Abdominal GI/Abdominal exam: Present: normal bowel sounds, soft, no peritoneal signs. Absent: distended, tenderness - Extremities Exam Extremities exam: Present: warm, radial pulses palpable and symmetrical. Absent : calf tenderness, cyanotic, pedal edema - Neurological Exam Neurological exam: Present: CN II-XII intact, oriented X3, no focal deficits. Absent: pronater drift, facial droop, speech deficit - Skin Skin exam: Present: dry, erythema (Redness noted to bilat arm healing wounds ) Internal Med - H&P Results - Labs CBC & Chem 7: 02/12/18 14:26 02/12/18 14:26 Labs: Short CBC 02/12/18 Range/Units 14:26 WBC 9.3 (4.3-11.1) K/mcL Hgb 13.8 (11.5-15.4) g/dL Hct 40.0 (35.3-44.9) % Plt Count 307 (140-400) K/mcL Neutrophils # 7.1 (1.6-8.9) K/mcL BMP 02/12/18 14:26 Sodium 139 Potassium 3.1 L Chloride 103 Carbon Dioxide 29 BUN 6 Creatinine 0.62 Glucose 116 H Calcium 9.8 - Assessment and plan (1) Bilateral arm pain Current Visit: Yes Status: Acute Assessment and plan: Patient here with recent admission regarding necrosis of her bilat hands/arm. Surgical intervention was done. Patient continued to use IV heroin and methamphetamine at home. CRP and ESR are elevated She was taking keflex at home but will continue IV vancomycin and IV zosyn as started in the ED Ortho was consulted in the ED and will follow the patient (2) IVDU (intravenous drug user) Current Visit: No Status: Chronic Assessment and plan: Social service consult-patient would like to quit her IVDU and wants to go to rehab Advocates assisting the patient, spoke with her in the ED Patient is homeless , lives with a man who took her in. He is reportedly drug and alcohol free Monitor for signs of withdrawal. Will add ativan prn for agitation. (3) Tobacco abuse Current Visit: No Status: Chronic Assessment and plan: Smoking cessation education (4) Tachycardia Current Visit: Yes Status: Acute Assessment and plan: Cardiac monitoring (5) Hypokalemia Current Visit: Yes Status: Acute Assessment and plan: K was 3.1 in the ED Potassium replacement 40 meq, oral x1 Will recheck in am Cardiac monitoring - Time Spent With Patient Total time spent is greater than 50% in coordination of care (as documented) at patient's floor/unit and/or counseling patient: <Sue Alcantar - Last Filed: 02/12/18 17:48> Date of Encounter: 02/12/18 Time of Encounter: 17:47 Internal Medicine - H&P: HPI History of present illness: Ms. Chau is a 32 year old female All Systems PM: A 10-system review of systems was performed and is negative for pertinent findings except as documented above in the HPI. - Constitutional Vitals: Temp Pulse Resp BP Pulse Ox 99 F 112 18 154/97 97 02/12/18 12:28 02/12/18 16:41 02/12/18 16:41 02/12/18 16:41 02/12/18 16:41 Internal Med - H&P Results - Labs CBC & Chem 7: 02/12/18 14:26 02/12/18 14:26 - Attending Attestation I discussed this patient's plan of care with the nurse practitioner, Dodie David. I agree with the documented findings, disposition and treatment plan as described with any changes as documented below. Patient with recent bilateral upper extremity wound infection discharged on oral antibiotics presented with left upper extremity pain. Eucerin CRP are slightly elevated. She does have serous discharge from wounds. Orthopedics consulted. Will place patient on IV Unasyn for now. - Time Spent With Patient Total time spent is greater than 50% in coordination of care (as documented) at patient's floor/unit and/or counseling patient:
[2018-02-12] MEDS ORDERED: *HR* LORazepam 2 MG/ML VIAL IVP PRN (16:40)
[2018-02-12] MEDS ORDERED: Ampicillin/Sulbactam 3,000 MG in 0.9 % Sodium Chloride Mini Bag 100 ML IVPB SCH (18:00)
[2018-02-12] MEDS ORDERED: Ringers Solution, Lactated 1,000 ML IVC SCH (18:00)
[2018-02-12] MEDS: Nafcillin 3,000 MG in D5% in Water 100 ML IVPB SCH (22:52)
[2018-02-12] MEDS: Ketorolac 15 MG/ML VIAL IVP PRN (23:14)
[2018-02-13] MEDS ORDERED: *HR* OxyCODONE/APAP 10/325 TABLET PO ONE (01:36)
[2018-02-13] MEDS ORDERED: Piperacillin/Tazobactam 3.375 GM in 0.9 % Sodium Chloride Mini Bag 100 ML IVPB SCH (03:00)
[2018-02-13] MEDS: Nafcillin 3,000 MG in D5% in Water 100 ML IVPB SCH ×2 (03:50→09:20)
[2018-02-13 06:37] LABS: Basophils % 0.3 %; Eosinophils # 0.2 K/mcL (0.0-0.6); Eosinophils % 3.2 %; Hematocrit 32.9 % (35.3-44.9); Immature Granulocytes % 0.7 % (0-4); Lymphocytes # 1.5 K/mcL (0.6-4.6); Lymphocytes % 24.3 %; Mean Corpuscular Volume 85.9 fL (83.0-100.0); Mean Platelet Volume 10.2 fL (9.4-12.4); Monocytes # 0.4 K/mcL (0.0-1.3); Monocytes % 6.5 %; Neutrophils # 3.9 K/mcL (1.6-8.9); Platelet Count 237 K/mcL (140-400); Red Blood Count 3.83 M/mcL (3.82-4.97); Red Cell Distribution Width 13.4 % (11.5-14.5)
[2018-02-13 06:39] LABS: Hemoglobin 11.5 g/dL (11.5-15.4)
[2018-02-13 06:43] LABS: BUN/Creatinine Ratio 16 (6-26); Blood Urea Nitrogen 10 mg/dL (6-20); Calcium 8.8 mg/dL (8.6-10.3); Carbon Dioxide 24 mEq/L (23-29); Chloride 112 mEq/L (98-107); Chol/HDL Ratio 3.4 (0-4.9); Cholesterol 121 mg/dL (< 200); Glucose 166 mg/dL (70-105); HDL Cholesterol 36 mg/dL (40-59); LDL Cholesterol,Calculated 72 mg/dL (0-99); Osmolality,Calculated 295 (280-300); Potassium 3.6 mEq/L (3.5-5.1); Sodium 141 mEq/L (136-145); Triglycerides 67 mg/dL (< 150); eGFR For African Americans > 60 (> 60); eGFR For Non-African Americans > 60 (> 60)
--- NOTE | 2018-02-13 07:11 | Event Note ---
Date of Encounter: 02/13/18 Time of Encounter: 06:30 Notified by nurse that patient had very likely taken meth in her room. She was seen with a suspicious substance, and her mood had changed from upset to happy with no intervention. She also apparently told several nurses that she had done heroin. Security called, and will speak with the patient.
[2018-02-13 07:30] VITALS: BP 138/76
--- NOTE | 2018-02-13 08:01 | Orthopedic Consult Note ---
Date of Encounter: 02/13/18 Time of Encounter: 07:58 Assessment and Plan (1) Bilateral arm pain Current Visit: Yes Status: Acute The patient has full-thickness ulcerations about the dorsal wrist and hand from injecting toxins in the soft tissues which caused necrosis. There does not appear to be a significant infection at this time. She does have fibrinous exudate in the wounds. No cellulitis. My recommendation at this point is local wound care and a consult to the wound care team. I did place wet-to-dry dressing changes. She may end up ultimately requiring skin grafts or flap coverage. I will follow the patient with you clinically. History of Present Illness HPI: Ms. Chau is a 32 year old female. She has bilateral dorsal wrist and hand ulcerations from drug use. She underwent bilateral dorsal wrist and hand debridements in the operating room. The plan at that point was for local wound care with daily wet-to-dry dressing changes. The patient was discharged but was readmitted last night because the emergency department was concerned for wound infections. The patient had an elevated heart rate though she was using crystal meth. On my evaluation the patient complains of expected pain to the bilateral dorsal hand and wrist areas. No new injuries or complaints. No feelings of illness. No numbness, tingling, or any other associated signs or symptoms or modifying factors. Past Med Surg Social Fam HX - Past Medical History Medical history: hepatitis Additional medical history: HEP C Psychiatric history: no psych history - Past Surgical History Surgical History: no surgical history - Social History Smoking Status: Current every day smoker Packs per day: 2 Smokeless Tobacco Status: No Alcohol use: occasionally Drug use: opiates, marijuana, methamphetamine, IV Drug Use, prescription drug abuse - Family History Mother Hx Family Cardiac Disorders: No Hx Family Respiratory Disorders: No Hx Family Cancer: Yes Hx Family GI Disorders: No Hx Family Genitourinary Disorders: No Hx Family Endocrine Disorder: Yes (DM) Hx Family Musculoskeletal Disorders: No Hx Family Neuromuscular Disorders: No Hx Family Neurologic Disorders: No Hx Family HEENT Disorders: No Hx Family Autoimmune Disorders: No Hx Family Reproductive Disorders: No Hx Family Psychosocial Disorders: No Hx Family Medical Disorders: No Medications and Allergies Acetaminophen [Tylenol] 650 mg PO Q6HR PRN tablet 02/09/18 [Rx] cephALEXin [Keflex] 500 mg PO QID #28 capsule 02/09/18 [Rx] 3 Allergy/AdvReac Type Severity Reaction Status Date / Time No Known Allergies Allergy Verified 02/12/18 14:59 All Systems Reviewed: Constitutional and musculoskeletal systems were reviewed and are negative unless otherwise stated in history of present illness. Physical Exam - Constitutional Vitals: Temp Pulse Resp BP Pulse Ox 98.6 F 86 16 138/76 99 02/13/18 07:29 02/13/18 07:29 02/13/18 07:29 02/13/18 07:29 02/13/18 07:29 CONSTITUTIONAL -Vitals reviewed -The patient is well developed, well nourished, well groomed PSYCHIATRIC -Fully alert and oriented -Pleasant mood LEFT UPPER EXTREMITY Mild swelling of the hand Widespread full-thickness ulceration about the left dorsal wrist and hand with the fibrinous exudate No gross purulence No cellulitis Tendons exposed but covered with peritenon Expected stiffness The patient can actively flex and extend all digits, extend the thumb, cross the index and long fingers, make an okay sign, and oppose the thumb. The fingertips are all grossly sensate and well-perfused, and the radial artery pulse is 2+. RIGHT UPPER EXTREMITY Mild swelling of the hand Widespread full-thickness ulceration about the left dorsal wrist and hand with the fibrinous exudate No gross purulence No cellulitis Tendons exposed but covered with peritenon Expected stiffness The patient can actively flex and extend all digits, extend the thumb, cross the index and long fingers, make an okay sign, and oppose the thumb. The fingertips are all grossly sensate and well-perfused, and the radial artery pulse is 2+. Results - Labs Result Diagrams: 02/13/18 06:19 02/13/18 06:19 Labs: Abnormal lab results Hct 32.9 % (35.3-44.9) L 02/13/18 06:19 ESR 34 mm/hr (0-15) H 02/12/18 14:26 Chloride 112 mEq/L (98-107) H 02/13/18 06:19 Glucose 166 mg/dL (70-105) H 02/13/18 06:19 C-Reactive Protein 20 mg/L (Less than 10) H 02/12/18 14:26 HDL Cholesterol 36 mg/dL (40-59) L 02/13/18 06:19 H & H 02/13/18 Range/Units 06:19 Hgb 11.5 D (11.5-15.4) g/dL Hct 32.9 L (35.3-44.9) % All other labs normal. Consult Discharge Plan - Plan Referrals: NONE,PCP [Primary Care Provider] -
[2018-02-13] MEDS: Ketorolac 15 MG/ML VIAL IVP PRN (08:51)
[2018-02-13] MEDS ORDERED: *HR* OxyCODONE/APAP 5/325 TABLET PO PRN (08:58)
[2018-02-13] MEDS ORDERED: Vancomycin 0 MG in 0.9 % Sodium Chloride 250 ML IVPB SCH (09:00)
--- NOTE | 2018-02-13 10:44 | Discharge Summary ---
Date of Encounter: 02/13/18 Time of Encounter: 10:39 - Discharge Diagnosis (1) Necrotic hand wound Priority: Primary Status: Chronic Qualifiers: Encounter type: subsequent encounter Laterality: unspecified laterality Qualified Code(s): S61.409D - Unspecified open wound of unspecified hand, subsequent encounter; I96 - Gangrene, not elsewhere classified (2) Mood disorder Priority: Primary Status: Chronic (3) Bilateral arm pain Priority: Primary Status: Chronic (4) Heroin use disorder, severe, dependence Priority: Primary Status: Chronic (5) Hepatitis C Priority: Secondary Status: Chronic Qualifiers: Viral hepatitis chronicity: chronic Hepatic coma status: without hepatic coma Qualified Code(s): B18.2 - Chronic viral hepatitis C (6) IVDU (intravenous drug user) Priority: Primary Status: Chronic (7) Tobacco abuse Priority: Secondary Status: Chronic Hospital course: Ms. Chau is a 32 year old unfortunate female with a long h/o- drug dependence including IV drug use that she openly admits to. She was recently discharged by me after undergoing debridement to B/L hand necrotic wounds that looked chronic, due to IV drug use. Patient was seen by Psychiatry, noted to have drug-seeking behaviour and substance induced mood and personality disorder , often being belligerent and aggressive to medical staff. She was admitted again for pain control. Seen by Orthopedics, to continue wound care and outpatient f/up; HHS cannot be set up due to no insurance, no PCP, drug use. Patient constantly requests increasing doses of narcotic pain meds, sometimes IV , which are not the treatment of choice in an active drug user, often with suspicious "use and behaviour" even during hospitalization (per nursing notes). This has been thoroughly explained to the patient, she refused to wait until my evaluation, wanted to leave AMA, completely alert and oriented per director of midwifery/staff midwife, knowing the risks of leaving. She is not septic. Discharge discussed with: nurse - Time Spent with Patient Total time spent providing and/or coordinating discharge services: Less than 30 minutes - Discharge Medications Home Medications: Acetaminophen [Tylenol] 650 mg PO Q6HR PRN tablet 02/09/18 [Rx] cephALEXin [Keflex] 500 mg PO QID #28 capsule 02/09/18 [Rx] Allergies/Adverse Reactions: 3 Allergy/AdvReac Type Severity Reaction Status Date / Time No Known Allergies Allergy Verified 02/12/18 14:59 Date of admission: 02/12/18 17:15 Primary care physician: PCP NONE Consults: 02/12/18 18:56 Consult to Pastoral Services [CONS] Routine Comment: - Constitutional Vitals: Temp Pulse Resp BP Pulse Ox 98.6 F 86 16 138/76 99 02/13/18 07:29 02/13/18 07:29 02/13/18 07:29 02/13/18 07:29 02/13/18 07:29 General appearance: Present: A&O X 3, answers questions appropriately - Patient Status Disposition: Left Against Medical Advice Condition: Good - Discharge Instructions Follow Up With: NONE,PCP [Primary Care Provider] -
--- NOTE | 2018-02-13 14:30 | Event Note ---
Date of Encounter: 02/13/18 Time of Encounter: 14:29 One out of one blood cultures grow GPC, preliminary; nursing staff to attempt to call patient back to ER;
--- NOTE | 2018-02-14 06:07 | Electrocardiograph Report ---
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
[2018-02-14 08:24] LABS: Enterococcus by PCR Not Detected (Not Detect); mecA Methicillin-Resist Gene ***DETECTED*** (Not Detect)
[2018-02-14 08:25] LABS: Acinetobacter baumannii by PCR Not Detected (Not Detect); Candida albicans by PCR Not Detected (Not Detect); Candida glabrata by PCR Not Detected (Not Detect); Candida krusei by PCR Not Detected (Not Detect); Candida parapsilosis by PCR Not Detected (Not Detect); Candida tropicalis by PCR Not Detected (Not Detect); Escherichia coli by PCR Not Detected (Not Detect); Klebsiella oxytoca by PCR Not Detected (Not Detect); Klebsiella pneumoniae by PCR Not Detected (Not Detect); Pseudomonas aeruginosa by PCR Not Detected (Not Detect); Serratia marcescens by PCR Not Detected (Not Detect); Staphylococcus aureus by PCR Not Detected (Not Detect); Streptococcus agalactiae(B)PCR Not Detected (Not Detect); Streptococcus by PCR Not Detected (Not Detect); Streptococcus pneumoniae PCR Not Detected (Not Detect); Streptococcus pyogenes (A) PCR Not Detected (Not Detect)
== END 2018-02-13 10:05 | disposition left against medical advice (07) ==
LOC: EMEROO 12:18 → 3NENU 12:18 → SUATTDRO 17:15 → 3NENU 18:22
PROVIDERS: ADMIT Internal Medicine; ATTEND Internal Medicine